=== PATIENT | male | born 2005 | race Caucasian/White ===

== ENCOUNTER 2024-10-28 04:37 | Observation (INO) | payer OTHER, SELFPAY ==
[2024-10-27 20:52] VITALS: BP 102/71
[2024-10-27 21:16] LABS: % Basophils 1.2 % (0-2); % Eosinophils 0.4 % (0-6); % Immature Granulocytes 0.3 % (0-0.5); % Lymphocytes 29.6 % (20.5-51.1); % Neutrophils 60.5 % (42.2-75.2); Absolute Basophils 0.1 10^3/uL (0-0.2); Absolute Lymphocytes 2.2 10^3/uL (1.2-3.4); Absolute Monocytes 0.6 10^3/uL (0.1-0.6); Absolute Neutrophils 4.5 10^3/uL (1.4-6.5); Hematocrit 42.2 % (39.0-52.0); Hemoglobin 14.7 g/dL (13.0-18.0); Mean Corp Hgb Conc. 34.8 g/dL (33.0-37.0); Mean Corpuscular Hgb 28.8 pg (27.0-31.0); Mean Corpuscular Volume 82.6 fL (80.0-94.0); Mean Platelet Volume 11.2 fL (7.4-10.4); Nucleated Red Blood Cells % 0 % (-); Platelet Count 265 10^3/uL (130-400); Red Blood Cell Count 5.11 10^6/uL (4.70-6.10); Red Cell Dist. Width 11.9 % (11.5-14.5); White Blood Cell Count 7.5 10^3/uL (4.8-10.8)
[2024-10-27 21:32] LABS: ALT (SGPT) 20 U/L (0-50); AST (SGOT) 32 U/L (17-59); Albumin 4.7 g/dl (3.5-5.0); Alkaline Phosphatase 101 U/L (38-126); Blood Urea Nitrogen 26 mg/dl (9-20); Calcium 9.7 mg/dl (8.4-10.2); Carbon Dioxide 19 mmol/L (22-30); Chloride 94 mmol/L (98-107); Glucose 96 mg/dl (70-99); Lipase 170 U/L (23-300); Potassium 4.8 mmol/L (3.5-5.1); Sodium 131 mmol/L (135-145); Total Bilirubin 2.6 mg/dl (0.2-1.3); Total Protein 6.9 g/dl (6.3-8.2); eGFR > 60.00
[2024-10-27 23:05] VITALS: BMI 15.0
[2024-10-27 23:08] VITALS: BP 105/65
[2024-10-27] MEDS: NSS 1000 IV (23:54)
[2024-10-28] VITALS (9 sets, daily range): BP systolic 94–105; BP diastolic 43–61
--- NOTE | 2024-10-28 00:06 | ED.GENMED ---
History of Present Illness
General
Chief Complaint: Abdominal Symptoms
Source: patient and family
Exam Limitations: none
Time Seen by Provider: 10/27/24 23:50
Nursing documentation reviewed up to this point in time: agreed with
History of Present Illness
History of Present Illness:
Pleasant 19-year-old male presents to the emergency department with multiple episodes of nausea with vomiting. Patient states that since the [employer] he has been in this state of not being able to keep anything down. He denies any drugs or
alcohol and states he was working during the [employer]. 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 He is supposed to take steroids on a daily basis but has been unable to keep them down. Patient denies fever or chills. He
denies chest pain or shortness of breath.
Vital signs are stable. Patient not hypoxic
Nursing note reviewed. I agree with nursing documentation up to this point in time.
Home Meds and allergies reviewed.
NUMBER AND COMPLEXITY OF PROBLEMS ADDRESSED AT THE ENCOUNTER
� Chronic conditions affecting care: APECED, addisonian disease, renal insufficiency, seizures
� Acute Exacerbation and/or Progression of Chronic Illness: Addisonian disease
� Differential Diagnosis includes: Addisonian crisis, dehydration, gastroenteritis
AMOUNT AND/OR COMPLEXITY OF DATA TO BE REVIEWED AND ANALYZED
I performed an independent evaluation of the following and my interpretation is:
EKG:
Pulse Ox: Not Hypoxic
Budget Examiner: Sinus Rhythm
CT:
X-rays:
Ultrasound:
Laboratory Studies: BUN of 26, creatinine of 1.0, T. bili of 2.6
Other:
Review of other/old records: Previous ER records
Clinical information was obtained by an independent historian:
Prescriptions/Medications Considered but not given:
Further testing considered but not performed:
RISK OF COMPLICATIONS AND/OR MORBIDITY OR MORTALITY OF PATIENT MANAGEMENT
Social determinants of health affecting care: Good Social Support
Discussion with other providers:
Escalation of care including admission/observation vs risk of discharge considered: After being observed in the emergency department, patient is improving but we will continue to observe. Discussed plan with hospitalist who
is in agreement.
CRITICAL CARE NOTE:
Total Time (exclusive of procedures):
Update:
Past History
Past History
ED Past Medical History: None
ED Past Surgical History: None
Social History
Tobacco: Non-smoker
Alcohol: None
Drug: None
Phy Exam
General Physical Exam
General Presentation: well appearing and moderate distress
General Skin: warm and dry
General Habitus: normal
General Mental: alert
General Hydration: appears well hydrated
ENT Exam
ENT Exam: EOMI, pharynx normal, neck supple and normocephalic
Eye Exam
Eye Exam: PERRL, cornea clear and conjunctiva normal
Cardiovascular Exam
Cardiovascular Exam: regular rate/rhythm, no edema, no murmur and normal peripheral pulses
Pulmonary Exam
Pulmonary Exam: lungs clear, no respiratory distress, no rales, no crackles, no rhonchi, no stridor, no wheezing and no cough
Gastrointestinal Exam
Gastrointestinal Exam: normal bowel sounds, non tender, soft, no organomegaly, no pulsatile mass, non distended and other (Negative McBurney's point tenderness. Negative Avitia sign)
Neurological Exam
Neurological Exam: alert, oriented x3, no motor deficits and speech normal
Musculoskeletal Exam
Musculoskeletal Exam: full ROM and no edema
Skin Exam
Skin Exam: normal color, warm/dry, no rash and no petechia
Psychiatric Exam
Psychiatric Exam: normal mood/affect
Course
Orders/Labs/Results
Orders:
Orders
10/27/24 21:02
Complete Blood Count/With Diff Urgent
Comprehensive Metabolic Panel Urgent
Lipase Urgent
TSH Urgent
Comment: ADD ON
10/27/24 23:51
0.9% Sodium Chloride 1000 ml [Nss] 1,000 ml IV BOLUS
10/28/24 00:02
Hydrocortisone Sod Succinate [Solu-Cortef] 100 mg IV NOW STA
10/28/24 00:04
Ondansetron Injectable [Zofran] 4 mg IV NOW STA
10/28/24 01:33
Add On- LAB Urgent
Tests Added?: TSH
Abnormal Lab Results
10/27/24
21:02
MPV 11.2 H fL
(7.4-10.4)
Sodium 131 L mmol/L
(135-145)
Chloride 94 L mmol/L
(98-107)
Carbon Dioxide 19 L mmol/L
(22-30)
BUN 26 H mg/dl
(9-20)
Total Bilirubin 2.6 H mg/dl
(0.2-1.3)
10/27/24 21:02
10/27/24 21:02
Vital Signs
Initial and Last Documented VS:
Initial Vital Signs
Temp Pulse Resp BP Pulse Ox
98.7 F 103 22 102/71 95
10/27/24 20:52 10/27/24 20:52 10/27/24 20:52 10/27/24 20:52 10/27/24 20:52
Last Documented Vital Signs
Temp Pulse Resp BP Pulse Ox
98.7 F 103 22 101/45 100
10/27/24 20:52 10/27/24 20:52 10/27/24 20:52 10/28/24 02:00 10/28/24 02:00
*Pulse Oximetry
Patient hypoxic: no
*Critical Care Note
Total Time (30-74mins, 75-104mins- exclusive of procedures): Not Applicable
ED Attending Note
-
Portions of this chart may have been created with voice recognition software.� Occasional wrong word or��sound alike� substitutions may have occurred due to the inherent limitations of voice recognition software.
Discharge Plan
Departure
Patient Disposition: Admit
Date of Disposition: 10/28/24
Time of Disposition: 02:15
Admit to: Telemetry
Presentation/result/management discussed w/ accepting MD/DO: Hospitalist
Patient with high blood pressure during this ER visit?: Yes
Condition: Good
Discharge Problem:
Addisonian crisis, Nausea & vomiting
Prescriptions:
No Action
Prednisone
4 mg PO DAILY
Patient Comments:
takes 4 mg at 0800 am
patient then stated that he took 10 mg of po prednisone this am 12/06/21
Prednisone
2 mg PO DAILY
Patient Comments:
takes 2 mg at 8 pm
Fludrocortisone Acetate
1 tab PO DAILY
promethazine 25 MG tablet
25 mg PO Q6HPRN PRN (Reason: nausea) Qty: 10 0RF
ondansetron 4 mg Tablet,Disintegrating
4 mg PO BIDPRN PRN (Reason: nausea/vomiting) Qty: 10 0RF
Referrals:
Ranjit Copeland DO [Family Provider] -
Interventions
Interventions:
*Risk Screen - Suicide Last Done: 10/27/24 20:52
*General Assessment Last Done: 10/27/24 20:52
*Neglect/Abuse Screening Last Done: 10/27/24 20:52
ED- Fall Risk Assessment Last Done: 10/27/24 23:05
*ED COVID-19 Vaccine History Last Done: 10/27/24 23:05
GB-Xswzhg-Adqzcknasp Assessment Last Done: 10/27/24 23:05
Discharge Date and Time
Print Language: PARAGUAYAN
[2024-10-28] MEDS: ZOFRAN 4 MG IV (00:13)
[2024-10-28] MEDS: SOLU-CORTEF 100 MG IV (00:13)
[2024-10-28 02:47] LABS: TSH 1.02 uIU/ml (0.47-4.68)
--- NOTE | 2024-10-28 04:18 | HPS.HSE ---
Family Physician
-
Family Physician: Ranjit Copeland
Chief Complaint
-
N/V
History of Present Illness
Patient is a 19y M with PMH significant for adrenal insufficiency / APECED who presents to ED complaining of intractable N/V x several days. Patient states that his symptoms started on Saturday and have persisted since that time. He denies any
alcohol use, drug use, unusual food exposures, etc prior to onset of his symptoms. No known sick contacts. Patient notes that he has been vomiting about 6 times daily. He has not been able to tolerate any PO intake - and this includes his
medications / hormone supplementations.
Patient denies abdominal pain, diarrhea, fevers / chills, etc.
Medical History
Past Medical History
Past Medical History: Reports Other
Additional Past Medical History:
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
Adrenal Insufficiency
Hyperthyroidism
Anxiety / Depression
Past Surgical History: Reports Other
Additional Past Surgical History:
Multiple endoscopies, etc in childhood.
Social History
Tobacco: Non-smoker
Alcohol: Occasional
Drug: Marijuana (Occasional THC - none recently.)
Family History
Family History: Not pertinent (No family members with APECED)
Allergies / Home Medications
Allergies reflects when Allergies were last updated in [employer].
Home Medications with original date entered in [employer]
Allergy/Medication List:
Allergies
Allergy/AdvReac Type Severity Reaction Status Date / Time
albuterol Allergy Unknown Verified 10/15/22 12:45
amoxicillin trihydrate Allergy Unknown Verified 10/15/22 12:45
[From Augmentin]
midazolam Allergy Unknown Verified 10/15/22 12:45
potassium clavula Allergy Unknown Verified 10/15/22 12:45
*RETIRED-06/03/12
[From Augmentin]
vancomycin Allergy Unknown Verified 10/15/22 12:45
cefil Allergy Unknown Uncoded 10/15/22 12:45
Home Medications
fludrocortisone 0.1 mg tablet 0.2 mg PO DAILY 10/28/24
fluoxetine 10 mg tablet 10 mg PO DAILY 10/28/24
hydrocortisone 10 mg tablet 10 mg PO BID 10/28/24
methimazole 5 mg tablet 5 mg PO DAILY 10/28/24
prednisone 1 mg tablet 1 mg PO HS 10/28/24
Review of Systems
-
History Source: Patient
A 12 point ROS was completed and negative except as noted: Yes
Constitutional: Reports Fatigue; Denies Fever or Chills
EENT: Denies Sore Throat
Respiratory: Denies Cough or Trouble Breathing
Cardiac: Denies Chest Pain or Palpitations
Abdomen/GI: Reports Nausea, Vomiting and Anorexia; Denies Abdominal Pain, Diarrhea, Constipated, Bloody Stools or Black Stools
: Denies Dysuria or Frequency
Musculoskeletal: Denies Joint Pain or Edema
Neurological: Denies Dizzy or Headache
Physical Exam
Vital Signs
Vital Signs
Temp Pulse Resp BP Pulse Ox
98.7 F 103 22 94/45 100
10/27/24 20:52 10/27/24 20:52 10/27/24 20:52 10/28/24 03:00 10/28/24 03:00
Physical Exam
General: Other (Thin / cachectic 19y M in no acute distress.)
HEENT: Moist mucous membranes and PERRLA
Respiratory: Clear; No Wheezes, Rales or Rhonchi
Cardiac: S1/S2 and Regular Rhythm; No Murmur
GI: Soft, Non Tender, Non Distended and Normal Bowel Sounds
Musculoskeletal: No Clubbing, No Cyanosis and No Edema
Neuro: AO x 3
Laboratory Results
-
10/27/24 21:02
10/27/24 21:02
Laboratory Results
Total Bilirubin 2.6 mg/dl (0.2-1.3) H 10/27/24 21:02
AST 32 U/L (17-59) 10/27/24 21:02
ALT 20 U/L (0-50) 10/27/24 21:02
Alkaline Phosphatase 101 U/L (38-126) 10/27/24 21:02
Lipase 170 U/L (23-300) 10/27/24 21:02
Impression/Plan
-
A/P: Patient is a 19y M with PMH significant for APECED / adrenal insufficiency who presents to ED complaining of intractable N/V x several days.
APECED
Adrenal Insufficiency
- Observe overnight for further evaluation and treatment.
- Received IVFs and stress-dose SoluMedrol IV in the ED.
- Patient notes clinical improvement already.
- Trial of PO intake and - if tolerates - resume his usual med regimen in the AM.
- Continue IVF support overnight.
- Consider additional IV steroid dosing if patient unable to tolerate PO with out recurrent N/V.
- Follows with Dr. Amado as an outpatient.
Intractable N/V
- Initial etiology unclear - ? gastroenteritis, etc.
- Likely perpetuated by adrenal insufficiency / inability to tolerate usual meds.
- Continue supportive care, IVFs, antiemetics, etc.
- Follow for continued clinical improvement.
Hyperthyroidism
- Stable. TSH normal. Continue current methimazole dose.
DVT Prophylaxis: SCDs
Code Status: Full
[2024-10-28] MEDS: NSS 1000 IV (05:18)
[2024-10-28 05:53] LABS: Blood Urea Nitrogen 25 mg/dl (9-20); Calcium 8.1 mg/dl (8.4-10.2); Carbon Dioxide 22 mmol/L (22-30); Chloride 100 mmol/L (98-107); Estimated Creatinine Clearance 101 ml/min; Glucose 180 mg/dl (70-99); Sodium 131 mmol/L (135-145); eGFR > 60.00
--- NOTE | 2024-10-28 07:17 | W.PN.HOSP.TC ---
Addendum entered and electronically signed by Anjelica Pennington MD 10/28/24 17:41:
I saw and evaluated the patient independently. I reviewed the resident�s note and agree with findings and plan as documented by Dr. Chavarria.
GENERAL: well developed, well nourished, male in no apparent distress
HEENT: NC/AT
HEART: regular rate and rhythm, +S1, +S2
LUNGS : clear to auscultation bilaterally
ABDOM: soft, nontender, nondistended, + bowel sounds
EXT: no cyanosis, clubbing, or edema
NEUROLOGIC: nonfocal
N/V--started night of [place]--no one else sick--could not keep down meds so had Adrenal Insufficiency--s/p IVF, IV steroids--much improved--tolerated diet--resume home meds--OK for d/c--f/u with endo
APECED-- Monitoring - Stable
Hyperthyroidism--Monitoring - Stable--TSH WNL--cont methimazole
DVT proph-- SCDs
FULL CODE STATUS
Original Note:
Today's Communication/Plan
-
Maintain IV fluid support until medically stable. Patient already notes clinical improvement. Continue current medications including antiemetics. Will move forward with discharge planning.
Assessment / Plan
Assessment / Plan
HPI: The patient is a 19-year-old male who presented to the emergency department with multiple episodes of nausea with vomiting. The patient stated that since the [employer] he had been in the state of not being able to keep anything down. He
stated that he was working on the day of the [employer]. 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 The patient occasionally used alcohol
and marijuana, but not recently. Unfortunately, he had been unable to take his steroids as he had been unable to keep anything down. The patient notes that he has been vomiting approximately 6 times a day. Patient denied any fever or chills, and
had no chest pain or shortness of breath. The patient received IV fluid support, hydrocortisone, Zofran in the emergency department and was admitted to telemetry. The patient was admitted to [facility] for addisonian crisis.
Assessment/Plan:
-Adrenal Insufficiency: Unresolved
Continue IV fluid support and determine if further IV steroid dosing is needed if unable to tolerate oral dosing
Patient already notes clinical improvement since receiving Solu-Medrol in the emergency department
Recommend follow-up with outpatient community health director after discharge
-Intractable Nausea/Vomiting: Improving
Likely perpetuated by adrenal insufficiency and exacerbated by inability to tolerate oral meds
Continue IV fluid support
Zofran as needed
-APECED: Monitoring - Stable
- Hyperthyroidism: Monitoring - Stable
TSH levels normal
Continue current methimazole
DVT prophylaxis: SCDs
FULL CODE STATUS
Anticipated Discharge: Within 24 hours
Subjective/Interval History
-
Met with patient at the bedside. Overall, he is doing well and offers no complaints at the present time. He feels that he is returned to his baseline and would like to be discharged home.
Objective Data
-
Labs:
Laboratory Results
10/27/24 10/28/24
21:02 05:16
WBC 7.5
Hgb 14.7
Hct 42.2
Plt Count 265
Sodium 131 L 131 L
Potassium 4.8 4.0
Chloride 94 L 100
Carbon Dioxide 19 L 22
BUN 26 H 25 H
Creatinine 1.0 0.8
Glucose 96 180 H
Calcium 9.7 8.1 L D
Total Bilirubin 2.6 H
AST 32
ALT 20
Alkaline Phosphatase 101
Vital Signs:
Vital Signs
Temp Pulse Resp BP Pulse Ox
98.7 F 103 22 99/49 100
10/27/24 20:52 10/27/24 20:52 10/27/24 20:52 10/28/24 06:00 10/28/24 06:00
Review of Systems
-
All other systems: Reviewed and negative
Physical Exam
-
General: Well Developed, Well Nourished, No Apparent Distress and Comfortable
HEENT: Normocephalic, Atraumatic and Moist Mucous Membranes
Respiratory: Clear to Auscultation
Cardiac: Regular Rhythm and S1/S2
Breast: Deferred by me
GI: Soft, Nontender, Nondistended and Normal Bowel Sounds
Rectal: Deferred by Provider
Genito-urinary: Deferred by me
Musculoskeletal: No Clubbing, No Cyanosis and No Edema
Skin: Warm
Neuro: Awake, Alert and Oriented
Psych: Calm
[2024-10-28] MEDS: PROZAC 10 MG PO (08:22)
[2024-10-28] MEDS: TAPAZOLE 5 MG PO (08:22)
[2024-10-28] MEDS: FLORINEF 0.2 MG PO (08:22)
[2024-10-28] MEDS: CORTEF 10 MG PO (08:22)
--- NOTE | 2024-10-28 09:15 | PTCARENOTE ---
pt very anxious to be discharged. initially refusing monitor leads and wanting to leave. notified MD and updated pt that she will be around to see him by 9am. he was agreeable to cares and meds. pt states no nausea vomiting and able to eat
cereal without problems
[2024-10-28 09:20] LABS: Hematocrit 28.1 % (39.0-52.0); Hemoglobin 10.2 g/dL (13.0-18.0); Mean Corp Hgb Conc. 36.3 g/dL (33.0-37.0); Mean Corpuscular Hgb 29.5 pg (27.0-31.0); Mean Corpuscular Volume 81.2 fL (80.0-94.0); Mean Platelet Volume 11.6 fL (7.4-10.4); Platelet Count 159 10^3/uL (130-400); Red Blood Cell Count 3.46 10^6/uL (4.70-6.10); Red Cell Dist. Width 11.7 % (11.5-14.5); White Blood Cell Count 3.4 10^3/uL (4.8-10.8)
[2024-10-28 09:29] LABS: ALT (SGPT) 14 U/L (0-50); AST (SGOT) 22 U/L (17-59); Albumin 3.2 g/dl (3.5-5.0); Alkaline Phosphatase 64 U/L (38-126); Blood Urea Nitrogen 22 mg/dl (9-20); Calcium 8.1 mg/dl (8.4-10.2); Carbon Dioxide 21 mmol/L (22-30); Chloride 101 mmol/L (98-107); Estimated Creatinine Clearance 115 ml/min; Glucose 209 mg/dl (70-99); Magnesium 2.2 mg/dl (1.6-2.3); Potassium 4.2 mmol/L (3.5-5.1); Sodium 131 mmol/L (135-145); Total Bilirubin 1.6 mg/dl (0.2-1.3); Total Protein 5.1 g/dl (6.3-8.2); eGFR > 60.00
--- NOTE | 2024-10-28 09:55 | CM ---
Patient seen at bedside with mother. Patient stated that he would go home and has no needs. Patient lives with parents. Patient stated it is a 2 story home. Patient PCP is Dr. Copeland and he uses the [facility] in [place]. Patient mother to transport.
Patient reviewed OBS form with CM and mother, completed form given to community marketing coordinator for scanning. Patient for discharge after tolerated diet per physicians. CM will continue to follow for discharge planning needs.
Plan; home with family
--- NOTE | 2024-10-28 18:16 | W.DCSUMMARY ---
Addendum entered and electronically signed by Anjelica Pennington MD 10/29/24 07:04:
Read, reviewed, and agree. See same day progress note for additional details. Time spent coordinating care, DC planning, review of DC plan of care with resident, transition of care, review of records in EMR, med rec, consults, notes, d/w
consultants, nursing, family, and CM = 20 minutes
Original Note:
Discharge Summary
Discharge Data
Date of Admission: 10/28/24
Date of Discharge: 10/28/24
-
Pending Results: No
Hospital Course
The patient is a 19-year-old male who presented to the emergency department with multiple episodes of nausea with vomiting. The patient stated that since the [employer] he had been in the state of not being able to keep anything down. He stated
that he was working on the day of the [employer]. 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 The patient occasionally used alcohol and
marijuana, but not recently. Unfortunately, he had been unable to take his steroids as he had been unable to keep anything down. The patient notes that he has been vomiting approximately 6 times a day. Patient denied any fever or chills, and had
no chest pain or shortness of breath. The patient received IV fluid support, hydrocortisone, Zofran in the emergency department and was admitted to telemetry. The patient was admitted to [facility] for addisonian crisis.
In the emergency department the patient's status quickly improved with IV fluid support and Solu-Medrol stress dosing. The patient's nausea and vomiting resolved quickly after treatment began. The patient's TSH levels were normal so his
methimazole was continued. After sufficient observation the patient appears to be back at his baseline and is medically stable. He consumed his meal and was able to tolerate it without any nausea or vomiting. He asked to be discharged and is
appropriate for discharge.
The patient has reached maximal benefit from this hospital stay and is appropriate for discharge at the present time. The patient should follow-up with his outpatient editing clerk within 1 week after discharge. The patient should also follow-up
with his primary care provider within 1 week after discharge.
Discharge Plan
-
Patient Disposition: Home (Routine Discharge)
Discharge Diagnosis/Procedures: Addisonian Crisis
Condition: Good
Diet: No restrictions
Activity: No restrictions
Driving Restrictions: As prior to admission
Referrals:
Ranjit Copeland DO [Family Provider] - in less than 1 week
Prescriptions:
Continued
fluoxetine 10 mg Tablet
10 mg PO DAILY
prednisone 1 mg Tablet
1 mg PO HS
methimazole 5 mg Tablet
5 mg PO DAILY
hydrocortisone 10 mg Tablet
10 mg PO BID
fludrocortisone 0.1 mg Tablet
0.2 mg PO DAILY
Discharge Orders:
Discharge Patient (As Directed); Ordered 10/28/24
Ordered By: Cari Chavarria
Discharge Date and Time
Discharge Date/Time: 10/28/24 10:32
Print Language: SWAZI
== END 2024-10-28 10:32 | disposition home or self-care (01) ==
LOC: ED 04:37
PROVIDERS: Emergency Medicine; ADMITTING PHYSICIAN Hospitalist; ATTENDING PHYSICIAN Internal Medicine; EMERGENCY PHYSICIAN Student in an Organized Health Care Education/Training Program; FAMILY PHYSICIAN Family Medicine
DX: E27.2 Addisonian crisis (principal); R11.2 Nausea with vomiting, unspecified; E27.1 Primary adrenocortical insufficiency; E05.90 Thyrotoxicosis, unspecified without thyrotoxic crisis or storm
CPT/HCPCS: 80048; 80053; 83690; 83735; 84443; 85025; 85027; G0378

== ENCOUNTER 2024-11-23 01:00 | Inpatient (IN) | payer OTHER, SELFPAY ==
[2024-11-22 21:13] VITALS: BP 126/78
--- NOTE | 2024-11-22 21:51 | ED.GENMED ---
History of Present Illness
General
Chief Complaint: Abdominal Symptoms
Source: patient and records
Exam Limitations: none
Time Seen by Provider: 11/22/24 21:39
Nursing documentation reviewed up to this point in time: agreed with
History of Present Illness
History of Present Illness:
19-year-old male with past medical history of APECED, Rex's disease, hypothyroidism, anxiety who presents to the emergency room for 'adrenal crisis.' Patient says 'I am here because I am an adrenal crisis.' When asked why he believes he is in
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 He went home and vomited again and woke up this
morning continued to have nausea and vomiting. He says he feels severe fatigue and mild dizziness. He denies any abdominal pain. Denies any chest pain. Denies fever or chills. He denies any diarrhea. He denies any other complaints. He says
that he is on regular hydrocortisone 10 mg twice daily; he says that he did take his hydrocortisone today but was still nauseated and weak and came to the ER.
Past History
Past History
ED Past Medical History: None
ED Past Surgical History: None
Social History
Tobacco: Non-smoker
Alcohol: None
Drug: None
Review of Systems
Review of Systems
All Other Systems: ROS reviewed and negative except as documented in HPI and ROS
Constitutional: Reports fatigue; Denies fever or chills
Respiratory: Denies cough or trouble breathing
Cardiac: Denies chest pain
ABD/GI: Reports nausea and vomiting; Denies abdominal pain or diarrhea
: Denies flank pain
Musculoskeletal: Denies neck pain or back pain
Neurological: Denies dizzy or headache
Phy Exam
Physical Exam
Physical Exam:
General: Awake, alert, oriented x3; no acute distress
Head: Normocephalic, atraumatic
Eyes: Conjunctiva normal, sclera anicteric
Throat: Airway intact, slightly dry mucous membranes
Neck: Trachea midline
Lungs: Clear to auscultation bilaterally, no wheezing, rales, rhonchi
Heart: Regular rate and rhythm, no murmurs, gallops, or rubs
Abd: Soft, non distended, nontender
Neuro: No gross deficits
Extremities: No edema in extremities, equal pulses in all extremities
Scores
Heart Failure Risk
Heart Failure Risk Score: Not Applicable
Heart Score for Chest Pain Patients
STEMI patient?: Not applicable
Withdrawal Assessment of Alcohol
Withdrawal Assessment Completed?: Not applicable
Course
Orders/Labs/Results
Orders:
Orders
11/22/24 21:41
0.9% Sodium Chloride 1000 ml [Nss] 1,000 ml IV BOLUS
Hydrocortisone Sod Succinate [Solu-Cortef] 100 mg IV NOW STA
Ondansetron Injectable [Zofran] 4 mg IV NOW STA
11/22/24 21:42
Electrocardiogram (*1) Urgent
Reason for Study: QTc Monitoring
EKG- Treatment ONCE
11/22/24 22:07
Complete Blood Count/With Diff Urgent
Comprehensive Metabolic Panel Urgent
Cortisol, Random Urgent
Lipase Urgent
11/22/24 22:08
COVID-19 Antigen Urgent
Source: Nasal Swab
Influenza A+B Rapid Molecular Urgent
TOPHER Source: Nasal Swab
Specimen Description:
11/22/24 23:45
Dextrose 5%/0.9%Sodchl 1000 ml [D5/0.9% Sodium Chloride] 1,000 ml IV 75 mls/hr
11/23/24 00:21
Dextrose 50%-Water [Dextrose 50% Syringe] 25 grams .ROUTE .[facility]
11/23/24 00:22
Dextrose 50%-Water [Dextrose 50% Syringe] 25 grams IV NOW STA
Abnormal Lab Results
11/22/24 11/23/24
22:07 00:17
MPV 11.4 H fL
(7.4-10.4)
Absolute Monos (auto) 0.8 H 10^3/uL
(0.1-0.6)
Neutrophils % 26.5 L %
(42.2-75.2)
Monocytes % 12.6 H %
(1.7-9.3)
Eosinophils % 9.9 H %
(0-6)
Sodium 133 L mmol/L
(135-145)
Potassium 5.4 H mmol/L
(3.5-5.1)
BUN 30 H mg/dl
(9-20)
Calcium 10.7 H mg/dl
(8.4-10.2)
Total Bilirubin 2.4 H mg/dl
(0.2-1.3)
POC Glucose 69 L mg/dl
(70-99)
11/22/24 22:07
11/22/24 22:07
Vital Signs
Initial and Last Documented VS:
Initial Vital Signs
Temp Pulse Resp BP Pulse Ox
36.4 C 94 18 126/78 98
11/22/24 21:13 11/22/24 21:13 11/22/24 21:13 11/22/24 21:13 11/22/24 21:13
Last Documented Vital Signs
Temp Pulse Resp BP Pulse Ox
36.4 C 64 16 104/61 96
11/22/24 21:13 11/22/24 23:30 11/22/24 23:30 11/22/24 23:00 11/22/24 23:30
MDM/Problems Addressed
Differential Diagnosis Includes:
Adrenal insufficiency, gastritis/gastroenteritis, pancreatitis, cholelithiasis
MDM/Problems Addressed:
19-year-old male with history as noted presents to the emergency room for nausea and vomiting for the past 24 hours associate with increased fatigue and dizziness. He says he has had similar symptoms with adrenal insufficiency in the past although
he reports he was able to take his steroids today. Vitals are within normal limits�notably blood pressure normal at 126/78. Physical exam as above. Will place an IV check labs including a CBC and a CMP, cortisol level. Check lipase. Swab for
COVID and flu. Treat with Zofran, hydrocortisone, IV fluids. Reassess after the above.
Labs reviewed CBC unremarkable, CMP shows mild hyperkalemia 5.4; glucose acceptable but given that he has not been able to take by mouth can start D5 normal saline infusion. COVID and flu are negative. EKG shows acceptable QTc. Clinical
reassessment nausea improved but still feeling very weak and dizzy. Admit for continued treatment with concern for adrenal insufficiency. Discussed with hospitalist.
Reassessed patient he is feeling weak and clammy, dizzy. Normotensive but heart rate dropped into the 40s. Accu-Chek shows blood sugar in the 60s. Treated with D50. Heart rate improved. Continue to monitor. Admission is pending.
Chronic conditions affecting care:
Adrenal insufficiency
*Pulse Oximetry
Patient hypoxic: no
*Critical Care Note
Total Time (30-74mins, 75-104mins- exclusive of procedures): Not Applicable
Data Reviewed
Review of Other/Old Records Reveals: Labs, Records and Discharge Summary
Source: patient and records
Patient Management
Discussion with other providers: Hospitalist (Discussed with hospitalist)
Escalation/DeEscalation of care consider admission/obs:
Admission indicated
ED Attending Note
-
Portions of this chart may have been created with voice recognition software.� Occasional wrong word or��sound alike� substitutions may have occurred due to the inherent limitations of voice recognition software.
Discharge Plan
Departure
Patient Disposition: Admit
Date of Disposition: 11/22/24
Time of Disposition: 23:04
Admit to doctor: Garry
Presentation/result/management discussed w/ accepting MD/DO: Hospitalist
Discharge Problem:
Nausea & vomiting, Addisonian crisis
Prescriptions:
No Action
fluoxetine 10 mg Tablet
10 mg PO DAILY
prednisone 1 mg Tablet
1 mg PO HS
methimazole 5 mg Tablet
5 mg PO DAILY
hydrocortisone 10 mg Tablet
10 mg PO BID
fludrocortisone 0.1 mg Tablet
0.2 mg PO DAILY
Referrals:
Ranjit Copeland DO [Family Provider] -
Interventions
Interventions:
*Risk Screen - Suicide Last Done: 11/22/24 21:13
*General Assessment Last Done: 11/22/24 21:13
*Neglect/Abuse Screening Last Done: 11/22/24 21:13
*ED- Fall Risk Assessment Last Done: 11/22/24 21:13
*ED COVID-19 Vaccine History Last Done: 11/22/24 21:13
QQ-Olidze-Mpkgndmyiq Assessment Last Done: 11/22/24 22:54
Discharge Date and Time
Print Language: MALAY
[2024-11-22 21:53] VITALS: BMI 16.7
[2024-11-22 22:00] VITALS: BP 98/59
[2024-11-22] MEDS: ZOFRAN 4 MG IV (22:01)
[2024-11-22] MEDS: NSS 1000 IV (22:04)
[2024-11-22] MEDS: SOLU-CORTEF 100 MG IV (22:13)
[2024-11-22 22:24] LABS: % Eosinophils 9.9 % (0-6); % Immature Granulocytes 0.2 % (0-0.5); % Lymphocytes 48.8 % (20.5-51.1); % Monocytes 12.6 % (1.7-9.3); % Neutrophils 26.5 % (42.2-75.2); Absolute Basophils 0.1 10^3/uL (0-0.2); Absolute Eosinophils 0.7 10^3/uL (0-0.7); Absolute Lymphocytes 3.2 10^3/uL (1.2-3.4); Absolute Monocytes 0.8 10^3/uL (0.1-0.6); Absolute Neutrophils 1.8 10^3/uL (1.4-6.5); Hematocrit 47.2 % (39.0-52.0); Hemoglobin 16.2 g/dL (13.0-18.0); Mean Corp Hgb Conc. 34.3 g/dL (33.0-37.0); Mean Corpuscular Hgb 28.6 pg (27.0-31.0); Mean Corpuscular Volume 83.4 fL (80.0-94.0); Mean Platelet Volume 11.4 fL (7.4-10.4); Nucleated Red Blood Cells % 0 % (-); Platelet Count 218 10^3/uL (130-400); Red Blood Cell Count 5.66 10^6/uL (4.70-6.10); Red Cell Dist. Width 12.7 % (11.5-14.5); White Blood Cell Count 6.6 10^3/uL (4.8-10.8)
[2024-11-22 22:29] LABS: COVID-19 Antigen Negative (Negative)
[2024-11-22 22:35] LABS: ALT (SGPT) 25 U/L (0-50); AST (SGOT) 35 U/L (17-59); Alkaline Phosphatase 109 U/L (38-126); Blood Urea Nitrogen 30 mg/dl (9-20); Calcium 10.7 mg/dl (8.4-10.2); Carbon Dioxide 24 mmol/L (22-30); Chloride 98 mmol/L (98-107); Estimated Creatinine Clearance 87 ml/min; Glucose 73 mg/dl (70-99); Lipase 100 U/L (23-300); Potassium 5.4 mmol/L (3.5-5.1); Sodium 133 mmol/L (135-145); Total Bilirubin 2.4 mg/dl (0.2-1.3); Total Protein 7.6 g/dl (6.3-8.2); eGFR > 60.00
[2024-11-22 22:54] VITALS: BP 98/59
[2024-11-22 23:00] VITALS: BP 104/61
[2024-11-22 23:07] LABS: Cortisol, Random < 0.2 ug/dl
[2024-11-23] VITALS (21 sets, daily range): BP systolic 84–124; BP diastolic 48–86; BMI 14.7
[2024-11-23] MEDS: D5/0.9% SODIUM CHLORIDE 1000 IV ×4 (00:18→09:40)
[2024-11-23 00:19] LABS: Glucose - Point of Care 69 mg/dl (70-99)
[2024-11-23] MEDS: DEXTROSE 50% SYRINGE 25 GRAMS IV (00:22)
--- NOTE | 2024-11-23 00:46 | HPS.HSE ---
Family Physician
-
Family Physician: Ranjit Copeland
Chief Complaint
-
N/V, Weakness
History of Present Illness
Patient is a 19y M with PMH significant for adrenal insufficiency and APECED who presents to ED complaining of N/V and weakness. Patient states that his symptoms started suddenly last PM. He notes that he has been taking his medications as
usual despite his symptoms. However, he continued to have N/V x multiple episodes today. He has become increasingly weak / fatigued and presented to the hospital this evening for further evaluation.
In the ED, patient is noted to be tachycardic, hypotensive and hypoglycemic. He received an amp of D50 and is on D5NS infusion.
Patient received initial dose of hydrocortisone 100mg IV at 9:20 PM.
Medical History
Past Medical History
Past Medical History: Reports Other
Additional Past Medical History:
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
Adrenal Insufficiency
Hyperthyroidism
Anxiety / Depression
Past Surgical History: Reports Other
Additional Past Surgical History:
Multiple endoscopies, etc in childhood.
Social History
Tobacco: Non-smoker
Alcohol: Occasional
Drug: Marijuana (Occasional THC - none recently.)
Family History
Family History: Not pertinent (No family members with APECED)
Allergies / Home Medications
Allergies reflects when Allergies were last updated in [facility].
Home Medications with original date entered in [facility]
Allergy/Medication List:
Allergies
Allergy/AdvReac Type Severity Reaction Status Date / Time
albuterol Allergy Hives Verified 11/22/24 21:18
amoxicillin trihydrate Allergy Rash Verified 11/22/24 21:18
[From Augmentin]
cefprozil Allergy Rash Verified 11/22/24 21:18
midazolam Allergy agitation Verified 11/22/24 21:18
potassium clavula Allergy Rash Verified 11/22/24 21:18
*RETIRED-06/03/12
[From Augmentin]
vancomycin Allergy red kalee Verified 11/22/24 21:18
syndrome
Home Medications
fludrocortisone 0.1 mg tablet 0.2 mg PO DAILY Adrenal Insufficiency 10/28/24
fluoxetine 10 mg tablet 10 mg PO DAILY Mental Health 10/28/24
hydrocortisone 10 mg tablet 10 mg PO BID Adrenal Insufficiency 10/28/24
methimazole 5 mg tablet 5 mg PO DAILY Thyroid 10/28/24
prednisone 1 mg tablet 1 mg PO HS Adrenal Insufficiency 10/28/24
Review of Systems
-
History Source: Patient
A 12 point ROS was completed and negative except as noted: Yes
Constitutional: Reports Fatigue; Denies Fever or Chills
EENT: Denies Sore Throat
Respiratory: Denies Cough or Trouble Breathing
Cardiac: Denies Chest Pain or Palpitations
Abdomen/GI: Reports Nausea, Vomiting and Anorexia; Denies Abdominal Pain, Diarrhea, Constipated, Bloody Stools or Black Stools
: Denies Dysuria or Frequency
Musculoskeletal: Denies Joint Pain or Edema
Neurological: Denies Dizzy or Headache
Physical Exam
Vital Signs
Vital Signs
Temp Pulse Resp BP Pulse Ox
97.6 F 64 16 104/61 96
11/22/24 21:13 11/22/24 23:30 11/22/24 23:30 11/22/24 23:00 11/22/24 23:30
Physical Exam
General: Other (Pale, ill-appearing 19y M. Mildly diaphoretic.)
HEENT: Other (Dry MM. Neck supple.)
Respiratory: Clear; No Wheezes, Rales or Rhonchi
Cardiac: S1/S2 and Bradycardia; No Murmur
GI: Soft, Non Tender, Non Distended and Normal Bowel Sounds
Musculoskeletal: No Clubbing, No Cyanosis and No Edema
Neuro: AO x 3
Laboratory Results
-
11/22/24 22:07
11/22/24 22:07
Laboratory Results
Total Bilirubin 2.4 mg/dl (0.2-1.3) H 11/22/24 22:07
AST 35 U/L (17-59) 11/22/24 22:07
ALT 25 U/L (0-50) 11/22/24 22:07
Alkaline Phosphatase 109 U/L (38-126) 11/22/24 22:07
Lipase 100 U/L (23-300) 11/22/24 22:07
Impression/Plan
-
A/P: Patient is a 19y M with PMH significant for APECED / adrenal insufficiency who presents to ED complaining of intractable N/V and generalized weakness.
Adrenal Crisis
Rex's Disease
APECED
- Admit to ICU for further evaluation and treatment.
- Continue IV hydrocortisone 50mg q6 and follow for clinical improvement.
- Aggressive IVFs / volume replacement - including supplemental dextrose given hypoglycemia.
- Supportive care including antiemetics, etc.
- Follow for clinical improvement.
- Resume PO fludrocortisone, prednisone, etc once tolerating POs.
- Taper IV hydrocortisone to usual PO dosing once clinically improving.
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
Hyperthyroidism
- Hold methimazole for now given bradycardia, hypotension, etc.
- Check TFTs.
DVT Prophylaxis: SCDs
Code Status: Full
[2024-11-23 00:48] LABS: Glucose - Point of Care 213 mg/dl (70-99)
[2024-11-23] MEDS: SOLU-CORTEF 50 MG IV ×3 (03:11→11:26)
[2024-11-23 03:13] LABS: Glucose - Point of Care 172 mg/dl (70-99)
--- NOTE | 2024-11-23 03:22 | PTCARENOTE ---
Pt admit to ICU, pt belongings w/ pt. Oriented to room/hospital. SR/SB on telemetry. Pt c/o slight nausea that resolved without intervention. D5/0.9NSS infusing as ordered. Discussed plan of care w/ patient. Pt denies any pain, dizziness, or
lightheadedness. Urinating in urinal. Call canchola within reach.
[2024-11-23 03:27] LABS: INR 1.27; PT 16.2 Sec (11.4-14.6)
[2024-11-23 03:40] LABS: Blood Urea Nitrogen 28 mg/dl (9-20); Calcium 9.4 mg/dl (8.4-10.2); Carbon Dioxide 22 mmol/L (22-30); Chloride 101 mmol/L (98-107); Estimated Creatinine Clearance 109 ml/min; Glucose 182 mg/dl (70-99); Magnesium 2.1 mg/dl (1.6-2.3); Phosphorus 4.2 mg/dl (2.5-4.5); Sodium 133 mmol/L (135-145); eGFR > 60.00
[2024-11-23 03:42] LABS: Hemoglobin 13.7 g/dL (13.0-18.0); Mean Corp Hgb Conc. 35.1 g/dL (33.0-37.0); Mean Corpuscular Hgb 29.2 pg (27.0-31.0); Mean Corpuscular Volume 83.2 fL (80.0-94.0); Mean Platelet Volume 10.8 fL (7.4-10.4); Platelet Count 169 10^3/uL (130-400); Red Blood Cell Count 4.69 10^6/uL (4.70-6.10); Red Cell Dist. Width 12.5 % (11.5-14.5); White Blood Cell Count 5.7 10^3/uL (4.8-10.8)
[2024-11-23 04:09] LABS: Glucose - Point of Care 181 mg/dl (70-99)
[2024-11-23 04:11] LABS: TSH Reflex To Free T4 1.92 uIU/ml (0.47-4.68)
--- NOTE | 2024-11-23 06:38 | PTCARENOTE ---
Pt HR briefly dipped into 30s while completing AM EKG. Pt misunderstood instructions and held his breath during. HR recovered once breathing normally again. No further change in assessment.
[2024-11-23 08:10] LABS: Glucose - Point of Care 204 mg/dl (70-99)
--- NOTE | 2024-11-23 08:14 | CON.INTV ---
Consultation
Consultation Request
Date/Time Consultation Requested: 11/23/2024157
Date/Time Consultation Performed: 11/23/2024809
Requesting Provider: Dr. Castañeda
Performing Provider: Dr. Casey
Reason for Consultation: Adrenal crisis/bradycardia
Medical History
-
Chief Complaint: Vomiting
History of Present Illness:
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 He reports he has been taking his medications as usual. Patient
told triage that he was in an adrenal crisis. In the ER he was afebrile to 97.6 �F, pulse rate 94, breathing at 18 breaths/min, BP 126/78 and saturating 98% on room air. Initial labs showed sodium 133, potassium 5.4, calcium 10.7, random cortisol
level <0.2 and TSH 1.92. He also was COVID-19 antigen negative. CXR showed no acute cardiopulmonary process. In the ER he was given hydrocortisone, 1 L NS 0.9%, 4 mg Zofran, 1 amp of D50 and also started on D5-NS drip due to POCT BG of 69 shortly
after midnight on admission. Given that patient had bradycardia with heart rate dropping into the 30s, patient was admitted to the ICU for further care. Schedule Analyst services consulted for additional management/recommendations.
I spoke with the father, Boni, today at bedside during rounds. The pt had an episode like this in past during covid-19 (in 2019) when he did not take his medications when he was visiting his mother (his parents are ) and then ended up in
[place]. He works at [employer] at night, so this interrupts with his medication compliance. No preceding infection, cough, fevers or chills. HR this AM 75, BP 104/60 and SpO2 99% on room air. He feels much better currently. He follows with
endocrinology with Dr. Amado, although he has not seen him in several years.
PMHx: Rex's disease on home hydrocortisone + Florinef, APCED, hyperthyroidism, anxiety/depression
PSHx: Multiple endoscopies
Past Medical History
Past Medical History: Other (Above as per HPI)
Past Surgical History: Other (Above as per HPI)
Social History
Tobacco: Non-smoker
Alcohol: Occasional
Drug: Marijuana (None recently)
Personal: Single
Family History
Family History: Reviewed & Not Pertinent
Allergies / Home Medications
Allergies
Allergy/AdvReac Type Severity Reaction Status Date / Time
albuterol Allergy Hives Verified 11/22/24 21:18
amoxicillin trihydrate Allergy Rash Verified 11/22/24 21:18
[From Augmentin]
cefprozil Allergy Rash Verified 11/22/24 21:18
midazolam Allergy agitation Verified 11/22/24 21:18
potassium clavula Allergy Rash Verified 11/22/24 21:18
*RETIRED-06/03/12
[From Augmentin]
vancomycin Allergy red kalee Verified 11/22/24 21:18
syndrome
Home Medications
�Medication �Instructions �Recorded �Confirmed �Last Taken �Type
fludrocortisone 0.1 mg tablet 0.2 mg PO DAILY Adrenal 10/28/24 11/23/24 Unknown History
Insufficiency
fluoxetine 10 mg tablet 10 mg PO DAILY Mental Health 10/28/24 11/23/24 Unknown History
hydrocortisone 10 mg tablet 10 mg PO BID Adrenal Insufficiency 10/28/24 11/23/24 Unknown History
methimazole 5 mg tablet 5 mg PO DAILY Thyroid 10/28/24 11/23/24 Unknown History
prednisone 1 mg tablet 1 mg PO HS Adrenal Insufficiency 10/28/24 11/23/24 Unknown History
Review of Systems
-
History Source: Patient
All other systems: Negative unless noted
Vitals / Labs / Diagnostic Testing
Vital Signs
Temp Pulse Resp BP Pulse Ox
98.2 F 73 13 117/58 98
11/23/24 08:02 11/23/24 08:30 11/23/24 08:30 11/23/24 08:00 11/23/24 08:30
Lab Data
11/23/24 03:01
11/23/24 03:01
Laboratory Results
11/23/24
03:01
PT 16.2 H
INR 1.27
APTT 37.0 H
Microbiology
11/22/24 22:08 Nasal Swab Influenza Types A & B (MILAN) - Final
Negative for Influenza A & B, NAAT
Negative results must be combined with clinical observations
and patient history.
Nucleic Acid Amplification test (NAAT)performed on the
[employer] platform.
Diagnostic Testing:
Physical Exam
-
HEENT: Normocephalic and Anicteric
Cardiovascular: S1/S2, Rub (negative), Peripheral Edema (negative) and Other (Bradycardic)
Respiratory: Clear, Wheeze (negative), Rales (negative), Rhonchi (negative) and Non-Labored Respirations
GI: Soft, Non Distended, Non Tender and Normal Bowel Sounds
Neurology: AO x 3 and Tremors (negative)
Skin: Warm and Dry
General: Respiratory Distress (negative), Comfortable, Fever (negative) and Chills (negative)
Assessment
-
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 He reports he has been taking his medications as
usual. Patient told triage that he was in an adrenal crisis. In the ER he was afebrile to 97.6 �F, pulse rate 94, breathing at 18 breaths/min, BP 126/78 and saturating 98% on room air. Initial labs showed sodium 133, potassium 5.4, calcium 10.7,
random cortisol level <0.2 and TSH 1.92. He also was COVID-19 antigen negative. CXR showed no acute cardiopulmonary process. In the ER he was given hydrocortisone, 1 L NS 0.9%, 4 mg Zofran, 1 amp of D50 and also started on D5-NS drip due to POCT
BG of 69 shortly after midnight on admission. Given that patient had bradycardia with heart rate dropping into the 30s, patient was admitted to the ICU for further care. Schedule Analyst services consulted for additional management/recommendations.
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
Impression:
#Nausea/vomiting and due to adrenal crisis resulting from medication noncompliance
#Sinus bradycardia due to above
#Hyponatremia, hyperkalemia (mild) likely due to above
#Hypoglycemia
#Low BMI with food aversion, with concern for anorexia nervosa
#APECED
# History of asthma
#History of long QT syndrome
Plan:
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
- Random cortisol level was undetectable at <0.2, and TSH was WNL at 1.92
- Serum sodium level is also reduced, which is chronic for him (baseline 131�133), and potassium level mildly increased, again reinforcing adrenal insufficiency as the cause
- CXR was clear with no signs of pneumonia
- Given that the patient developed adrenal crisis from medication noncompliance, I will resume his home hydrocortisone 10mg BID and stop stress dose steroids; continue Florinef 0.2 mg daily
- Maintain MAP>65 with goal HR >50
- Consult cardiology
- Continue to monitor potassium level and keep [K] <5.5
- Glucose levels were 69 via POCT on admission � continue with supplemental dextrose infusion; can discontinue once patient is tolerating sufficient PO intake; goal BG >100 and <180
- Consult endocrinology
- Given his low BMI of 14 with food aversion, I will consult psychiatry
- Maintain SpO2 >90-94% using supplemental O2 if needed
- Replete electrolytes with K>4, Mg>2
- Trend H/H and transfuse if needed to keep Hb>7g/dL; keep plt>20k, unless there is concern for bleeding then keep plt>50k
- prn nebulized bronchodilators - not currently bronchospastic
- Incentive spirometer encouraged 10x per hour for at least 4 hrs a day
- DVT ppx: start LMWH
Patient is stable for downgrade out of ICU to telemetry. No additional recommendations at this time. Schedule Analyst/Pulmonary service will now sign off. Thank you for allowing us to be involved in the care of this patient. Please reconsult if there
are any additional questions/concerns, or if patient's respiratory status deteriorates.
Data:
CXR 11/23/2024:
1. Clear lungs without significant change compared to prior chest x-ray.
2. Prominence of the main pulmonary trunk, a nonspecific finding in a young patient. Please correlate for signs and symptoms of pulmonary hypertension
Total time spent today was 58 minutes for this encounter. Time includes reviewing laboratory test/imaging results, reviewing pertinent medical records, obtaining and reviewing medical history, performing an appropriate exam, ordering medications,
tests and procedures. Time also includes documentation of this encounter, coordinating patient care and communicating with other healthcare professionals. Total time does not include separately billed tests performed on this date of service.
[2024-11-23] MEDS: FLORINEF 0.2 MG PO (08:44)
[2024-11-23] MEDS: PROZAC 10 MG PO (08:44)
--- NOTE | 2024-11-23 09:26 | PTCARENOTE ---
report received. assessments per work list. patient alert and oriented. fatigued but states 'I feel much better'. denies pain and nausea.tolerating sips of clears. standing to void, jacob urine. lungs clear. monitor sinus rhythm with prolonged QT,
pac's and irregular rate, rhythm with activity. call canchola in reach. patient updated re:plan of care
--- NOTE | 2024-11-23 10:14 | CM ---
CM following re: discharge planning.
Reviewed pt's chart, met with pt.
Pt is a 19 year old male, admitted with primary dx of Adrenal Crisis. Rex's Disease.
Pt reports he lives with parents 2SH, 2 steps to enter. 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
PCP: Ranjit Copeland
Pharmacy: [facility]
D/C plan: home with no after care VN needs.
CM will follow with discharge plan updates as needed.
[2024-11-23 12:27] LABS: Glucose - Point of Care 140 mg/dl (70-99)
--- NOTE | 2024-11-23 12:58 | CS.PSYCHR ---
Consult Summary - Psychiatry
-
Pt is a 19 yo male with PMH significant for adrenal insufficiency, APECED who presented to ED complaining of N/V and weakness. Patient reported his symptoms started the night before, with multiple episodes of N/V. Pt stated he has been taking
his prescribed medications. In the ED, patient was noted to be tachycardic, hypotensive and hypoglycemic. Pt has low BMI 14.7. Psychiatry asked to assess regarding potential anorexia/depression. On interview, pt cooperative but somewhat guarded
and detached. He states he has struggled with gaining weight his whole life, would like to gain, has been taking supplements like Ensure, now on 'Mass milka'. Pt states he has a good appetite, eats meals, states he was placed on a regular diet
here. He reports feeling better, expects to be transferred out of the ICU.
Psych Hx: unspecified anxiety and depression, states community resource officer to hospitalization here at last summer. Pt on Prozac 10 mg QD Rx by PCP. No psychiatric follow-up. Reportedly saw a therapist briefly but did not continue
SH: single, employed, lives with parents
MSE: alert, oriented, calm, cooperative. Somewhat guarded, with detached affect. Speech coherent, thought goal-directed. No signs of psychosis. Mood stable, denies depression. Insight appears limited to fair
Imp: Adjustment d/o with anxiety/depression, stable
Rec: Outpatient therapy; continue Prozac 10 mg QD managed by PCP. Discussed with Dr Casey
Psychiatry will sign off
--- NOTE | 2024-11-23 12:58 | PTCARENOTE ---
Addendum entered by Adalgisa Clay RN 11/23/24 14:19:
phone report to east RN, transfer with monitor and belongings
Original Note:
patient assessments unchanged. down grade to tele level of care.
--- NOTE | 2024-11-23 14:33 | PTCARENOTE ---
Patient received from the ICU. Vital signs stable. NSR with heart rate in the 60s/prolonged QT interval that has not changed. Denies complaints at this time. Oriented to room, use of call canchola and TV/bed controls. Patient verbalizes understanding of
teaching and denies questions at this time.
[2024-11-23 16:13] LABS: Glucose - Point of Care 106 mg/dl (70-99)
--- NOTE | 2024-11-23 18:28 | W.PN.UPDATE ---
Update Note
Progress Note Update
Was seen and examined. Wanted to have a diet as a nausea vomiting abdominal pain had resolved.
Advance diet as tolerated
Wean off steroids to home steroids
Had lengthy discussion about steroid compliance to prevent any further adrenal crisis
Works in [employer]
--- NOTE | 2024-11-23 18:36 | PTCARENOTE ---
Patient refusing to wear tele monitor. made aware.
[2024-11-23] MEDS: CORTEF 10 MG PO (19:58)
[2024-11-23 20:01] LABS: Glucose - Point of Care 105 mg/dl (70-99)
[2024-11-23] MEDS: DELTASONE 1 MG PO (21:46)
--- NOTE | 2024-11-23 22:00 | PTCARENOTE ---
Pt told RN he wants to leave AMA and that he feels fine to go home. He was told in ICU, that he was stable for discharge and is confused why he has to stay. He denies n/v, pain, and blood sugar at 20:00 was 109. RN educated the importance of
monitoring hr and blood sugar overnight. Pt still insisted that he feels fine to leave and is aware of the risk. RN discussed with his mom the plan to leave AMA. RN removed IV and tele box. VSS. Pt ordered an uber and ambulated out by himself with
his belongings.
--- NOTE | 2024-11-23 22:14 | W.PN.UPDATE ---
Update Note
Progress Note Update
2030 Notified by nurse that pt wanting to leave.
At bedside pt states he is feeling back to normal self. He is eating good. He was told by physicians early in day that he would be able to go home today. Reviewed with him the risks of leaving against medical advice including but not limited to:
return of adrenal crisis including severe hypotension, low HR and low blood glucose and possibly shock which can lead to . Pt is aware of the risks and knows when he is having an adrenal crisis. Explained to return to ED if not feeling well.
Continue to take is home meds as ordered. AMA paperwork signed. He will call and Uber for ride (that is also how he got to hospital).
--- NOTE | 2024-11-23 22:24 | CON.MD ---
Consultation - Medical
-
19 y.o. WM patient of our practice (Dr. 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 He was followed at [facility] until he established care with Dr Amado as an adult. His
adrenal regimen consists of prednisone 1 mg daily, hydrocortison 10 mg bid and fludrocortisone 0.2 mg total dose daily. He arrived in ER here with his second Addisonian crisis in the past couple of weeks. It is not clear what precipitated this
episode as he appears nonacute now with no signs of infection. He presented though with recurrent vomiting, hypotension, hypoglycemia and electrolyte imbalance. He recently started working 3rd shifts at [employer], so it is possible this is a contributor.
. He was appropriately treated with stress dose steroids, and was hemodynamically stable when I evaluated him this afternoon. I recommended that he take 10 mg tid of hydrocortisone, at least until he quits the 3rd shift, continue on prednisone and
fludrocortisone. He may take his methimazole again. He needs follow up in our office, though he has not been diligent in keeping appts. We will reach out to him to schedule a visit soon, thank you.
--- NOTE | 2024-11-24 09:02 | W.DCSUMMARY ---
Discharge Summary
Discharge Data
Date of Admission: 11/23/24
Date of Discharge: 11/24/24
-
Pending Results: No
Hospital Course
19y M with PMH significant for adrenal insufficiency and APECED who presents to ED complaining of N/V and weakness. Patient states that his symptoms started suddenly last PM. He notes that he has been taking his medications as usual despite
his symptoms. Was admitted to ICU started on IV fluids and IV steroids. Improvement in appetite and blood pressure along with hypoglycemia but that resolved. Was evaluated by endocrinology recommended hydrocortisone 3 times daily while working
third shift at [employer] and continue prednisone/fludrocortisone. Though he was improving he still wanted to leave AMA and so he did at 10pm per Nursing Documentation.
Discharge Plan
-
Patient Disposition: Against Medical Advice
Prescriptions:
No Action
fluoxetine 10 mg Tablet
10 mg PO DAILY
prednisone 1 mg Tablet
1 mg PO HS
methimazole 5 mg Tablet
5 mg PO DAILY
hydrocortisone 10 mg Tablet
10 mg PO BID
fludrocortisone 0.1 mg Tablet
0.2 mg PO DAILY
Discharge Date and Time
Discharge Date/Time: 11/23/24 21:57
Print Language: FAROESE
== END 2024-11-23 21:57 | disposition left against medical advice (07) | DRG 644 ==
LOC: 4 EAST ACU 01:00
PROVIDERS: Nurse Practitioner Family; ADMITTING PHYSICIAN Hospitalist; ATTENDING PHYSICIAN Hospitalist; CONSULT PHYSICIAN Internal Medicine Endocrinology, Diabetes & Metabolism; EMERGENCY PHYSICIAN Emergency Medicine; FAMILY PHYSICIAN Family Medicine; OTHER PHYSICIAN Psychiatry & Neurology Psychiatry
DX: E27.2 Addisonian crisis (principal); E87.1 Hypo-osmolality and hyponatremia; E27.1 Primary adrenocortical insufficiency; E05.90 Thyrotoxicosis, unspecified without thyrotoxic crisis or storm; F43.22 Adjustment disorder with anxiety; E16.2 Hypoglycemia, unspecified; F32.A Depression, unspecified; E87.5 Hyperkalemia; E31.0 Autoimmune polyglandular failure; R00.1 Bradycardia, unspecified; I45.81 Long QT syndrome; Z11.52 Encounter for screening for COVID-19; Z86.16 Personal history of COVID-19; Z91.148 Patient's other noncompliance with medication regimen for other reason
CPT/HCPCS: 71045; 80048; 80053; 82533; 82962; 83690; 83735; 84100; 84443; 85025; 85027; 85610; 85730; 87502; 87811; 93005; 96374; 96375; 99285

== ENCOUNTER 2025-02-20 03:43 | Inpatient (IN) | payer OTHER, SELFPAY ==
[2025-02-20] VITALS (31 sets, daily range): BP systolic 84–160; BP diastolic 35–87; BMI 14.6; BMI 14.7
[2025-02-20 00:59] LABS: Glucose - Point of Care 55 mg/dl (70-99)
[2025-02-20] MEDS: NSS 1000 IV ×3 (01:24→22:14)
[2025-02-20] MEDS: DEXTROSE 50% SYRINGE 25 GRAMS IV (01:31)
[2025-02-20 01:37] LABS: Venous Blood Gas B.E. -5.4 mmol/L (-4 to +4); Venous Blood Gas HCO3 24.6 mmol/L (22-27); Venous Blood Gas O2 Sat % 79.4 %; Venous Blood Gas pCO2 66 mmHg (35-48); Venous Blood Gas pO2 52 mmHg (30-50)
[2025-02-20 01:38] LABS: % Basophils 1.3 % (0-2); % Eosinophils 6.5 % (0-6); % Immature Granulocytes 0.1 % (0-0.5); % Lymphocytes 48.4 % (20.5-51.1); % Monocytes 12.2 % (1.7-9.3); % Neutrophils 31.5 % (42.2-75.2); Absolute Basophils 0.1 10^3/uL (0-0.2); Absolute Eosinophils 0.7 10^3/uL (0-0.7); Absolute Lymphocytes 5.2 10^3/uL (1.2-3.4); Absolute Monocytes 1.3 10^3/uL (0.1-0.6); Absolute Neutrophils 3.4 10^3/uL (1.4-6.5); Hematocrit 42.2 % (39.0-52.0); Hemoglobin 14.9 g/dL (13.0-18.0); Mean Corp Hgb Conc. 35.3 g/dL (33.0-37.0); Mean Corpuscular Hgb 29.2 pg (27.0-31.0); Mean Corpuscular Volume 82.6 fL (80.0-94.0); Nucleated Red Blood Cells % 0 % (-); Platelet Count 242 10^3/uL (130-400); Red Blood Cell Count 5.11 10^6/uL (4.70-6.10); Red Cell Dist. Width 12.1 % (11.5-14.5); White Blood Cell Count 10.8 10^3/uL (4.8-10.8)
[2025-02-20 01:40] LABS: Venous Blood Gas pH 7.18 (7.32-7.43)
[2025-02-20 01:51] LABS: ALT (SGPT) 31 U/L (0-50); AST (SGOT) 53 U/L (17-59); Albumin 5.6 g/dl (3.5-5.0); Alkaline Phosphatase 100 U/L (38-126); Blood Urea Nitrogen 20 mg/dl (9-20); Calcium 10.8 mg/dl (8.4-10.2); Carbon Dioxide 22 mmol/L (22-30); Chloride 100 mmol/L (98-107); Estimated Creatinine Clearance 84 ml/min; Glucose 56 mg/dl (70-99); Potassium 4.4 mmol/L (3.5-5.1); Sodium 136 mmol/L (135-145); Total Bilirubin 2.4 mg/dl (0.2-1.3); Total Protein 8.3 g/dl (6.3-8.2); eGFR > 60.00
[2025-02-20 01:51] LABS: Lactic Acid 3.7 mmol/L (0.7-2.0)
[2025-02-20 02:09] LABS: Free T3 4.69 pg/ml (2.77-5.27); Free T4 1.35 ng/dl (0.78-2.19)
[2025-02-20] MEDS: D5/0.9% SODIUM CHLORIDE 1000 IV ×2 (02:22→05:19)
[2025-02-20] MEDS: SOLU-CORTEF 100 MG IV (02:22)
[2025-02-20 02:23] LABS: TSH 4.17 uIU/ml (0.47-4.68)
--- NOTE | 2025-02-20 02:24 | ED.GENMED ---
History of Present Illness
General
Chief Complaint: Change in Mental Status
Source: patient and family
Time Seen by Provider: 02/20/25 00:50
History of Present Illness
History of Present Illness:
Note:
CHIEF COMPLAINT(S)
Adrenal crisis with altered mental status.
HISTORY OF PRESENT ILLNESS
The patient is a 20-year-old male with a known history of autoimmune polyglandular syndrome type 1, affecting primarily the adrenal glands, who presents with symptoms suggestive of an adrenal crisis. Thirteen years post-diagnosis, he reports taking
hydrocortisone and fludrocortisone as part of his maintenance therapy. Symptoms began with confusion, described by a family member as 'talking gibberish,' and progressed to eyes rolling back, cool and clammy skin. He had an episode of altered mental
status at home, recognized by a family member, who noticed a decreased level of consciousness compared to baseline. Past episodes required intensive care due to severe bradycardia. The patient was found to be hypothermic on arrival with no recent
missed doses of medication according to family.
ADDITIONAL HISTORY OBTAINED FROM SOURCES OTHER THAN THE PATIENT
Per family member, the patient was found disoriented, unable to communicate effectively, and had episodes of eye-rolling. On the day of presentation, he completed a full shift at work prior to symptom onset. 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
nearby, and he had previous similar crises resulting in hospital admission.
CHRONIC MEDICAL CONDITIONS SIGNIFICANTLY AFFECTING CARE
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
SOCIAL DETERMINANTS AFFECTING HEALTH
The patient missed two doses of medication, potentially contributing to the current crisis.
REVIEW OF SYSTEMS
- General: Presence of altered mental status, confusion, hypothermia.
- Cardiovascular: History of severe bradycardia.
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
PHYSICAL EXAM
- General: Nursing notes reviewed and vital signs reviewed. Patient appears ashen with a cool touch, hypothermic with a rectal temperature of 91.2�F.
- Cardiovascular: Bradycardia with regular heart rhythm.
- Neurological: Speech clear but the patient appears confused with no focal deficits.
- Respiratory: No respiratory distress noted.
PROBLEM LIST
Acute:
- Adrenal crisis with altered mental status
- Hypothermia
- Bradycardia
-hypoglycemia
PLAN
The patient will be admitted for further monitoring and management of adrenal crisis. Warm blankets/salina hugger and supplemental sugar will be administered. Labs including cultures and lactate will be drawn to check for any signs of infection. A
clinical decision for stress dose steroids will be made based on ongoing assessment.
DIFFERENTIAL DIAGNOSIS
The Differential Diagnosis includes, in no particular order and is not limited to:
1. Adrenal crisis
2. Hypoglycemia
3. Hypothyroidism leading to myxedema coma
4. Electrolyte imbalance
5. Infection, such as sepsis
6. Thyroid dysfunction
7. Medication noncompliance
8. Dehydration
9. Neurological event
10. Drug overdose
CARE-UPDATE
02/20/25 - 02:25
Patient shows slight improvement in alertness, continues on warm air blanket therapy with heated intravenous fluids. Plan to recheck blood glucose levels for better monitoring of metabolic status.
EKG
My independent EKG interpretation is:
- Rhythm: Sinus bradycardia
- Heart rate: Bradycardic
- [place]: Normal
- QT interval: Prolonged
- Abnormalities: No ischemic changes
Disposition:
DIAGNOSIS
- Adrenal crisis due to adrenal insufficiency (ICD-10: E27.40)
SUMMARY OF ENCOUNTER
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 Symptoms included confusion and altered mental status, reported by the patients
father, resembling previous episodes. Initial examination revealed bradycardia, hypothermia, and altered mental status. These findings warranted an urgent management plan to stabilize his condition.
REASSESSMENT
Upon reassessment, the patients heart rate, temperature, and blood glucose levels showed improvement with ongoing intravenous fluids.
PLAN
The patient will continue to receive fluids and be kept warm using a Bearhugger in the ICU setting. Monitoring for infection was considered unnecessary due to a normal white blood cell count and the absence of a left shift. Blood cultures have been
sent for further evaluation to rule out any infection.
INDEPENDENT INTERPRETATION OF TESTS
My independent interpretation of the CBC indicates a normal white blood cell count and the absence of a left shift, decreasing the likelihood of an active infection. Chemistry reveals elevated lactic acid levels; however, the serum bicarbonate is
normal. The pH is acidotic, but I anticipate that it will improve with fluids.
MEDICAL DECISION MAKING
The patient presented with an adrenal crisis, requiring immediate intervention due to the risk of life-threatening complications. Management included intravenous fluids and active warming measures. The case complexity was compounded by the patients
pre-existing adrenal insufficiency, necessitating close monitoring and ongoing evaluation to ensure stabilization and address any potential underlying causes.
Past History
Past History
ED Past Medical History: None
ED Past Surgical History: None
Social History
Tobacco: Non-smoker
Alcohol: None
Drug: None
Phy Exam
Physical Exam
Physical Exam:
.
Course
Orders/Labs/Results
Orders:
Orders
02/20/25 00:46
Electrocardiogram (*1) Urgent
Reason for Study: Bradycardia / Tachycardia
EKG- Treatment ONCE
02/20/25 01:01
0.9% Sodium Chloride 1000 ml [Nss] 1,000 ml IV BOLUS
Dextrose 50%-Water [Dextrose 50% Syringe] 25 grams IV NOW STA
02/20/25 01:02
Salina Hugger [Salina Hugger-Treatment] ONCE
Patient's goal temperature:: 97 F
Additional Instructions:: Temperature and skin assessment per unit protocol
02/20/25 01:20
Complete Blood Count/With Diff Urgent
Lactic Acid Q4H
Comment: CANCEL 2nd LACTIC ACID IF 1st LACTIC ACID IS LESS THAN 2
Venous Blood Gas Urgent
%Oxygen/Room Air: RA
02/20/25 01:21
Acetaminophen Urgent
Alcohol Urgent
Comprehensive Metabolic Panel Urgent
Cortisol, Random Stat
Comment: ADD ON
Free T3 Stat
Free T4 Stat
TSH Stat
Blood Culture Q30M
TOPHER Source: Blood/Venous
Specimen Description:
Blood Culture Q30M
TOPHER Source: Blood/Venous
Specimen Description:
02/20/25 01:40
Hydrocortisone Sod Succinate [Solu-Cortef] 100 mg IV NOW STA
02/20/25 01:44
Add On- LAB Urgent
Tests Added?: random cortisol
02/20/25 02:00
Dextrose 5%/0.9%Sodchl 1000 ml [D5/0.9% Sodium Chloride] 1,000 ml IV 100 mls/hr
02/20/25 02:15
Bedside Glucose- Treatment ONCE
02/20/25 03:13
Admit/Transfer Patient As Directed
Co-Sign Provider:
Level of Care: Inpatient admission
Assign to:: IMU- Intermediate Care
Physician / Group: Bertha
Diagnosis: Adrenal crises
Reason for Hospitalization: Adrenal crises
Expected length of stay greater than two midnights?: Yes
ELOS- Estimated Length of Stay in days: 2
I certify the patient meets the requirements for IP care: Yes
PRN Pain Medication Management As Directed
May give lesser potent ordered pain med per pt: Yes
preference::
Protocol:: Medication orders for pain may be administered in a
manner that supports deferring to patient preference
when the pt is:
- Requesting an ordered lesser potent pain medication.
Least to most potent pain medications are defined
as: acetaminophen < NSAID < tramadol < opioids
(morphine, oxycodone, hydromorphone).
- Requesting a lesser dose of the same medication IF
ORDERED.
- Requesting a less intrusive route of administration
if both routes are prescribed by the provider (PO <
IV).
02/20/25 03:15
Code Status As Directed
Resuscitation Status: Full Code
02/20/25 03:19
CR Chest - 2 Views Stat
Comment:
Reason For Exam: eval for acute consolidation
02/20/25 03:27
0.9% Sodium Chloride 500 ml [Nss] 500 ml IV BOLUS
02/20/25 03:30
Add On- LAB Stat
Tests Added?: Alcohol
Add On- LAB Stat
Tests Added?: Tylenol
Urine Drug Abuse Screen Stat
Date Specimen was Collected: 02/20/25
Time Specimen was Collected: 05:42
NORepinephrine 4 MG/250 ML [Levophed] 4 mg in 250 ml IV PER PROTOCOL
Initial dose in mcg/min, then titrate:: 2
Titrate to keep:: SBP > 90 mmHg
Titrate by mcg/min:: 1-2 mcg/min
Frequency of titrations (minutes):: 5
Maximum dose in ICU in mcg/min:: 30
Maximum dose in IMU in mcg/min:: 8
Maximum dose in IVU in mcg/min:: 4
Begin to taper infusion when:: Remained at goal for 4hrs
Taper by mcg/min:: 1-2 mcg/min
Frequency of taper (minutes) if patient maintains goal:: 30
Taper to off?: Yes
If infusion off & no longer maintaining goal:: Contact Provider
02/20/25 03:57
Acetaminophen [Tylenol] 650 mg PO Q4HPRN PRN
Bisacodyl [Dulcolax] 10 mg RECTAL [id number] PRN
Docusate W/Senna [Senokot-S] 1 tablet PO BIDPRN PRN
Ondansetron Injectable [Zofran] 4 mg IV Q6HPRN PRN
Polyethylene Glycol Powder [Miralax] 17 grams PO DAILYPRN PRN
02/20/25 03:57
Activity As Directed
Activity Level: With Assistance
Bedside Glucose Monitoring As Directed
Frequency: q4h
Capnography/ETCO2 As Directed
Vital Signs As Directed
Frequency: Per unit guidelines
Pulse Ox/spot Check [RESP] Routine
Quantity: 1
DX Deep Vein Thrombosis Video Routine
02/20/25 04:00
Dextrose 5%/0.9%Sodchl 1000 ml [D5/0.9% Sodium Chloride] 1,000 ml IV 150 mls/hr
Flush (0.9% Sodium Chloride) [Flush (Nss)] See Dose Instructions IV PER PROTOCOL
02/20/25 05:46
Basic Metabolic Panel IN AM
Complete Blood Count/No Diff IN AM
Lactic Acid Q4H
Comment: CANCEL 2nd LACTIC ACID IF 1st LACTIC ACID IS LESS THAN 2
Magnesium IN AM
Venous Blood Gas IN AM
%Oxygen/Room Air: RA
02/20/25 05:47
Urinalysis Reflex To Culture Urgent
Date Specimen was Collected: 02/20/25
Time Specimen was Collected: 05:42
02/20/25 Breakfast
Regular
At Your Request: Limited Participation
Hydrocortisone Sod Succinate [Solu-Cortef] 50 mg IV Q6
02/20/25 08:00
Fludrocortisone Acetate [Florinef] 0.2 mg PO DAILY
Fluoxetine HCl [Prozac] 10 mg PO DAILY
02/20/25 18:00
Enoxaparin Sodium [Lovenox] 40 mg SC QPM
Abnormal Lab Results
02/20/25 02/20/25 02/20/25
00:56 01:20 01:21
MPV 12.0 H fL
(7.4-10.4)
Absolute Lymphs (auto) 5.2 H 10^3/uL
(1.2-3.4)
Absolute Monos (auto) 1.3 H 10^3/uL
(0.1-0.6)
Neutrophils % 31.5 L %
(42.2-75.2)
Monocytes % 12.2 H %
(1.7-9.3)
Eosinophils % 6.5 H %
(0-6)
VBG pH 7.18 L*
(7.32-7.43)
VBG pCO2 66 H mmHg
(35-48)
VBG pO2 52 H mmHg
(30-50)
Glucose 56 L mg/dl
(70-99)
Lactic Acid 3.7 H mmol/L
(0.7-2.0)
Calcium 10.8 H mg/dl
(8.4-10.2)
Total Bilirubin 2.4 H mg/dl
(0.2-1.3)
Total Protein 8.3 H g/dl
(6.3-8.2)
Albumin 5.6 H g/dl
(3.5-5.0)
Acetaminophen < 10 L ug/ml
(10-30)
POC Glucose 55 L* mg/dl
(70-99)
02/20/25
02:31
MPV
Absolute Lymphs (auto)
Absolute Monos (auto)
Neutrophils %
Monocytes %
Eosinophils %
VBG pH
VBG pCO2
VBG pO2
Glucose
Lactic Acid
Calcium
Total Bilirubin
Total Protein
Albumin
Acetaminophen
POC Glucose 170 H mg/dl
(70-99)
02/20/25 01:20
02/20/25 01:21
Vital Signs
Initial and Last Documented VS:
Initial Vital Signs
Pulse Resp BP Pulse Ox
32 12 123/85 100
02/20/25 00:43 02/20/25 00:43 02/20/25 00:43 02/20/25 00:43
Last Documented Vital Signs
Temp Pulse Resp BP Pulse Ox
98.6 F 64 16 101/58 96
02/20/25 05:00 02/20/25 06:30 02/20/25 06:30 02/20/25 06:00 02/20/25 06:30
*Pulse Oximetry
Patient hypoxic: no
*Critical Care Note
Total Time (30-74mins, 75-104mins- exclusive of procedures): 60 minutes
Patient Management
Discussion with other providers: Hospitalist
ED Attending Note
-
Portions of this chart may have been created with voice recognition software.� Occasional wrong word or��sound alike� substitutions may have occurred due to the inherent limitations of voice recognition software.
Discharge Plan
Departure
Patient Disposition: Admit
Date of Disposition: 02/20/25
Time of Disposition: 02:49
Admit to: ICU
Presentation/result/management discussed w/ accepting MD/DO: Hospitalist
Discharge Problem:
Acute adrenal insufficiency, Hypothermia, Hypoglycemia, Acidosis, lactic
Interventions
Interventions:
*Risk Screen - Suicide Last Done: 02/20/25 00:43
*General Assessment Last Done: 02/20/25 00:43
*Neglect/Abuse Screening Last Done: 02/20/25 00:43
*ED- Fall Risk Assessment Last Done: 02/20/25 00:43
*ED COVID-19 Vaccine History Last Done: 02/20/25 00:43
*Nursing Disposition Last Done: 02/20/25 05:22
ED- Pulmonary Assessment Last Done: 02/20/25 05:22
ED-Psychological Assessment Last Done: 02/20/25 05:22
ED- Neurological Assessment Last Done: 02/20/25 02:45
ED- Cardiac Assessment Last Done: 02/20/25 05:22
Discharge Date and Time
Discharge Date/Time: 02/20/25 05:24
[2025-02-20 02:30] LABS: Cortisol, Random < 0.2 ug/dl
[2025-02-20 02:33] LABS: Glucose - Point of Care 170 mg/dl (70-99)
--- NOTE | 2025-02-20 03:19 | HPS.HSE ---
Family Physician
-
Family Physician: Ranjit Copeland
Chief Complaint
-
Altered mental status
History of Present Illness
This is 20-year-old with history of autoimmune polyglandular syndrome type I (APECED) affecting primarily adrenal glands who presents to the emergency department with altered mental status and found to be hypotensive, hypothermic with concerns for
recurrent episode of adrenal crisis.
Patient has a known history of adrenal insufficiency secondary to the autoimmune disorder stated above. He reports to be taking hydrocortisone and fludrocortisone as part of his maintenance therapy. Patient had episode of confusion at home where
he was speaking gibberish and then had a syncopal episode with eyes rolling the back of his head and neck. Cool and clammy. Could not evaluate patient regarding history of medication use.
After some resuscitation in the ED was able to remember that he had GI symptoms earlier in the day. He said that around dinnertime he had some mild stomach upset with vomiting and diarrhea. Was nonbloody and nonbilious. He denied cough cold
fevers or chills. No urinary symptoms. He states he has had adrenal crisis associated with mild to moderate illnesses in the past. Reports compliance with his fludrocortisone, hydrocortisone, prednisone and methimazole. Denies any drug use
except for smoking THC.
He was last admitted in november for adrenal crises. At the time, he reported taking his medications as prescribed and apparently during his symptoms he continued take his medications as prescribed. He required admission to ICU and he was on steroids
and IV fluids. He did improve and despite episode of bradycardia. Was discharged on hydrocortisone 3 times daily as well as for cortisone. Was to continue his prednisone. He left the hospital AMA at that time. History of cannabis use.
In the emergency department, at the time I saw the patient his temp was 95.2 on warming measures, he was satting 100% on room air. Blood pressure was 108/50 with a pulse of 51. ECG shows profound sinus bradycardia at the rate of 31. CBC was
unremarkable. Electrolytes BUN and creatinine were also normal. Glucose was 56.
UA was negative.
Blood gas shows a pH of 7.18 with PCO2 of 66 and a bicarb of 24.
Medical History
Past Medical History
Past Medical History: Reports Other
Additional Past Medical History:
Autoimmune Wfttwhlbjwczkaxfvb-Uxzxlhzkfqu-Cinqtzroee Dystrophy
Adrenal Insufficiency
Hyperthyroidism
Anxiety / Depression
Past Surgical History: Reports Other
Additional Past Surgical History:
Multiple endoscopies, etc in childhood.
Social History
Tobacco: Non-smoker
Alcohol: Occasional
Drug: Marijuana (Occasional THC - none recently.)
Family History
Family History: Not pertinent (No family members with APECED)
Allergies / Home Medications
Allergies reflects when Allergies were last updated in [facility].
Home Medications with original date entered in [facility]
Allergy/Medication List:
Allergies
Allergy/AdvReac Type Severity Reaction Status Date / Time
albuterol Allergy Hives Verified 11/22/24 21:18
amoxicillin trihydrate Allergy Rash Verified 11/22/24 21:18
[From Augmentin]
cefprozil Allergy Rash Verified 11/22/24 21:18
midazolam Allergy agitation Verified 11/22/24 21:18
potassium clavula Allergy Rash Verified 11/22/24 21:18
*RETIRED-06/03/12
[From Augmentin]
vancomycin Allergy red kalee Verified 11/22/24 21:18
syndrome
Home Medications
fludrocortisone 0.1 mg tablet 0.2 mg PO DAILY Adrenal Insufficiency 10/28/24
fluoxetine 10 mg tablet 10 mg PO DAILY Mental Health 10/28/24
hydrocortisone 10 mg tablet 10 mg PO BID Adrenal Insufficiency 10/28/24
methimazole 5 mg tablet 5 mg PO DAILY Thyroid 10/28/24
prednisone 1 mg tablet 1 mg PO HS Adrenal Insufficiency 10/28/24
Review of Systems
-
Unable to obtain full review of systems at this time due to: Patient Non-verbal
Physical Exam
Vital Signs
Vital Signs
Temp Pulse Resp BP Pulse Ox
95.2 F L 51 17 108/59 100
02/20/25 02:40 02/20/25 02:50 02/20/25 02:45 02/20/25 02:08 02/20/25 02:45
Physical Exam
General: Well Developed and Comfortable
HEENT: Anicteric, Atraumatic, PERRLA, No Ptosis, Nose Appears Normal and Neck Nontender; No Oxygen
Respiratory: Clear; No Wheezes, Rales or Rhonchi
Cardiac: S1/S2 and Bradycardia; No Murmur
GI: Soft, Non Tender, Non Distended and Normal Bowel Sounds
Musculoskeletal: No Clubbing, No Cyanosis and No Edema
Neuro: AO x 3, Nonfocal/grossly intact and Other (Somnolent but arousable,)
Hematologic/Lymphatic: No Lymphadenopathy
Laboratory Results
-
02/20/25 01:20
02/20/25 01:21
Laboratory Results
Lactic Acid 3.7 mmol/L (0.7-2.0) H 02/20/25 01:20
Total Bilirubin 2.4 mg/dl (0.2-1.3) H 02/20/25 01:21
AST 53 U/L (17-59) 02/20/25 01:21
ALT 31 U/L (0-50) 02/20/25 01:21
Alkaline Phosphatase 100 U/L (38-126) 02/20/25 01:21
Data Reviewed
-
Diagnostic Radiology: Image Personally Visualized and interpreted
Medical Tests (Nuc Med, Echo, EKG etc): Image Personally Visualized and interpreted
Lab Data: Labs Reviewed by me
Old Records: Reviewed
Impression/Plan
-
IMPRESSION:
20-year-old with adrenal insufficiency presenting with hypotension, hypothermia and altered mental status likely secondary to acute adrenal crisis possibly precipitated by a mild gastroenteritis. He has mild hypoglycemia. No obvious infection
source with clear UA. He is afebrile. Does have a mild respiratory acidosis of uncertain etiology. Compared to initial presentation he has shown marked improvement with resolution of bradycardia and has maintained MAP > 64
Plan
Admit to IMU
s/p 1 L normal saline bolus, continue with 5% dextrose in isotonic saline, bedside glucose q 4 for now
Hydrocortisone 100 mg IV x 1 then 50 mg every 6 hours
Supportive measures including pressors as needed to maintain MAP greater than 65, Warming measures and prn dextrose
TSH ok but interpretation spurious in adrenal crises, unlikely hypothyroid
Blood cultures sent, u/a clear no indication for urine culture, Chest x-ray pending
Hold abx for now
Taper parenteral steroids over 1 to 3 days if no complicating illness
Fludrocortisone 0.2mg po daily
Hold methimazole for now
- uds and serum drug screen
Respiratory acidosis - patient w/ primary respiratory acidosis. Clear lungs. No AG. No h/o ingestions
- A&Ox3 now, protecting airways
- RR ok
- drug screen as above
DVT PPX - lovenox sq
Code status - Full Code
[2025-02-20 04:03] LABS: Acetaminophen < 10 ug/ml (10-30)
[2025-02-20 04:06] LABS: Alcohol None Detected
[2025-02-20] MEDS: NSS 500 IV (04:10)
[2025-02-20] MEDS: ZOFRAN 4 MG IV (05:19)
[2025-02-20] MEDS: SOLU-CORTEF 50 MG IV ×2 (05:19→12:21)
[2025-02-20 06:07] LABS: Glucose - Point of Care 102 mg/dl (70-99)
[2025-02-20 06:14] LABS: Urine Albumin 2+ (Neg - Trace); Urine Bilirubin Negative (Negative); Urine Character Clear (Clear); Urine Color Yellow; Urine Glucose 3+ (Negative); Urine Ketone 2+ (Negative); Urine Leukocyte Negative (Negative); Urine Nitrite Negative (Negative); Urine Occult Blood Negative (Negative); Urine Urobilinogen Negative (Neg - 1+)
[2025-02-20 06:16] LABS: Venous Blood Gas HCO3 21.1 mmol/L (22-27); Venous Blood Gas O2 Sat % 92.8 %; Venous Blood Gas pCO2 47 mmHg (35-48); Venous Blood Gas pH 7.26 (7.32-7.43); Venous Blood Gas pO2 66 mmHg (30-50)
[2025-02-20 06:23] LABS: Hematocrit 33.8 % (39.0-52.0); Hemoglobin 12.1 g/dL (13.0-18.0); Mean Corp Hgb Conc. 35.8 g/dL (33.0-37.0); Mean Corpuscular Hgb 29.3 pg (27.0-31.0); Mean Corpuscular Volume 81.8 fL (80.0-94.0); Mean Platelet Volume 11.5 fL (7.4-10.4); Platelet Count 158 10^3/uL (130-400); Red Blood Cell Count 4.13 10^6/uL (4.70-6.10); White Blood Cell Count 4.6 10^3/uL (4.8-10.8)
[2025-02-20 06:31] LABS: Lactic Acid 1.1 mmol/L (0.7-2.0)
[2025-02-20 06:46] LABS: Blood Urea Nitrogen 20 mg/dl (9-20); Calcium 8.8 mg/dl (8.4-10.2); Carbon Dioxide 19 mmol/L (22-30); Chloride 109 mmol/L (98-107); Estimated Creatinine Clearance 95 ml/min; Glucose 132 mg/dl (70-99); Magnesium 1.9 mg/dl (1.6-2.3); Potassium 4.5 mmol/L (3.5-5.1); Sodium 135 mmol/L (135-145); eGFR > 60.00
[2025-02-20 06:47] LABS: Urine Mucus Few; Urine Squamous Cell 0-2 /LPF (Few)
[2025-02-20 06:48] LABS: Urine Bacteria Few (Negative); Urine Red Blood Cell 0-2 /HPF (0-2); Urine White Cell 0-2 /HPF (0-5)
[2025-02-20 09:12] LABS: Amphetamines Negative (Negative); Barbiturates Negative (Negative); Benzodiazepines Negative (Negative); Buprenorphine Negative (Negative); Cocaine Negative (Negative); Marijuana Positive (Negative); Methadone Negative (Negative); Methamphetamines Negative (Negative); Opiates Negative (Negative); Phencyclidine Negative (Negative); Tricyclic Antidepressants Negative (Negative)
[2025-02-20] MEDS: PROZAC 10 MG PO (09:22)
[2025-02-20] MEDS: FLORINEF 0.2 MG PO (09:22)
--- NOTE | 2025-02-20 09:54 | PTCARENOTE ---
Assumed care of patient this morning. Patient has no complaints except for feeling tired. He states that his nausea is improved and ready for breakfast, educated on ordering. Capnography maintained per order. Assessment, care and VS as charted.
[2025-02-20 10:47] LABS: Glucose - Point of Care 151 mg/dl (70-99)
--- NOTE | 2025-02-20 13:49 | W.PN.HOSP.TC ---
Today's Communication/Plan
-
Pending endocrine consult
Assessment / Plan
Assessment / Plan
Impression:
20-year-old with adrenal insufficiency presenting with hypotension, hypothermia and altered mental status likely secondary to acute adrenal crisis possibly precipitated by a mild gastroenteritis. He has mild hypoglycemia. No obvious infection
source with clear UA. He is afebrile. Does have a mild respiratory acidosis of uncertain etiology. Compared to initial presentation he has shown marked improvement with resolution of bradycardia and has maintained MAP > 64
Assessment/plan:
Acute adrenal crisis
Admitted to IMU
s/p 1 L normal saline bolus, continue with 5% dextrose in isotonic saline, bedside glucose q 4 for now
Hydrocortisone 100 mg IV x 1 then 50 mg every 6 hours
Supportive measures including pressors as needed to maintain MAP greater than 65, Warming measures and prn dextrose
IVF
Blood culture
Discussed with endocrinology, will see him on consult.
Fludrocortisone 0.2mg po daily
Hold methimazole for now
UDS and serum drug screen shows marijuana
Acute respiratory acidosis - patient w/ primary respiratory acidosis.
Clear lungs. No AG. No h/o ingestions
Improved
Mild gastroenteritis.
Improving
CODE STATUS: Full code
DVT prophylaxis: Lovenox
Diet: Regular diet
Family communication: Discussed with father at bedside
Disposition: Pending endocrine consult
Total time spent on today's encounter was 65 minutes which included time spent in counseling the patient/family regarding diagnosis and treatment plan as listed above, goals of care, and symptom management. Case was discussed with nursing staff,
specialists, and care coordinators/case management. All labs and imaging personally reviewed by me. Remainder the time spent in detailed review of previous records, lab data, imaging, and other medical provider documentation.
Anticipated Discharge: 24 - 48 hours
Subjective/Interval History
-
Date of Service: February 20, 2025
Patient seen and examined at bedside, patient looks tired and sleepy but does not denies any chest pain or shortness of breath.
Later discussed with father bedside.
Objective Data
-
Labs:
Laboratory Results
02/20/25 02/20/25
01:21 05:46
WBC 4.6 L
Hgb 12.1 L
Hct 33.8 L
Plt Count 158 D
Sodium 136 135
Potassium 4.4 4.5
Chloride 100 109 H
Carbon Dioxide 22 19 L
BUN 20 20
Creatinine 0.9 0.8
Glucose 56 L 132 H
Calcium 10.8 H 8.8 D
Total Bilirubin 2.4 H
AST 53
ALT 31
Alkaline Phosphatase 100
Vital Signs:
Vital Signs
Temp Pulse Resp BP Pulse Ox
98.3 F 68 16 89/45 95
02/20/25 12:18 02/20/25 12:00 02/20/25 12:00 02/20/25 12:00 02/20/25 12:00
I&O
02/19/25 02/20/25 02/21/25
06:59 06:59 06:59
Output Total 200 / 200
Balance -200 / -200
Physical Exam
-
General: Well Developed, Well Nourished, No Apparent Distress and Comfortable
HEENT: Normocephalic, Atraumatic and Moist Mucous Membranes
Respiratory: Clear to Auscultation
Cardiac: Regular Rhythm and S1/S2
Breast: Deferred by me
GI: Soft, Nontender, Nondistended and Normal Bowel Sounds
Rectal: Deferred by Provider
Genito-urinary: Deferred by me
Musculoskeletal: No Clubbing, No Cyanosis and No Edema
Skin: Warm
Neuro: Awake, Alert and Oriented
Psych: Calm
Data Reviewed
-
Diagnostic Radiology: Image personally visualized and interpreted and Report Reviewed by me
CT Scan: Image personally visualized and interpreted and Report Reviewed by me
Ultrasound: Image personally visualized and interpreted and Report Reviewed by me
MRI: Image personally visualized and interpreted and Report Reviewed by me
Medical Tests (Nuc Med, Echo etc): Image personally visualized and interpreted and Report Reviewed by me
Labs: Labs Reviewed by me
Old Records: Reviewed
--- NOTE | 2025-02-20 16:00 | PTCARENOTE ---
Patient's mother now at bedside and updated per RN ability.
[2025-02-20] MEDS: CORTEF 20 MG PO ×2 (16:09→22:14)
[2025-02-20 16:21] LABS: Glucose - Point of Care 212 mg/dl (70-99)
[2025-02-20 19:07] LABS: Glucose - Point of Care 213 mg/dl (70-99)
[2025-02-21] VITALS (9 sets, daily range): BP systolic 91–116; BP diastolic 41–70; PULSE 64–83
[2025-02-21 00:13] LABS: Glucose - Point of Care 135 mg/dl (70-99)
--- NOTE | 2025-02-21 02:14 | PTCARENOTE ---
Pt AAOx3 able to make needs known. Pt mother at bedside. Pt bp remains stable at this time. Pt HR nicole into the 40's at times.Temp stable at this time. call canchola within reach. Assessment care and vitals as charted.
[2025-02-21 03:46] LABS: Hematocrit 28.3 % (39.0-52.0); Mean Corp Hgb Conc. 35.3 g/dL (33.0-37.0); Mean Corpuscular Hgb 29.4 pg (27.0-31.0); Mean Corpuscular Volume 83.2 fL (80.0-94.0); Mean Platelet Volume 11.9 fL (7.4-10.4); Platelet Count 136 10^3/uL (130-400); Red Cell Dist. Width 12.1 % (11.5-14.5); White Blood Cell Count 8.2 10^3/uL (4.8-10.8)
[2025-02-21 04:07] LABS: Blood Urea Nitrogen 9 mg/dl (9-20); Calcium 8.7 mg/dl (8.4-10.2); Carbon Dioxide 24 mmol/L (22-30); Chloride 111 mmol/L (98-107); Estimated Creatinine Clearance 109 ml/min; Glucose 137 mg/dl (70-99); Magnesium 2.1 mg/dl (1.6-2.3); Phosphorus 3.3 mg/dl (2.5-4.5); Potassium 4.3 mmol/L (3.5-5.1); Sodium 140 mmol/L (135-145); eGFR > 60.00
[2025-02-21 05:52] LABS: Glucose - Point of Care 134 mg/dl (70-99)
[2025-02-21] MEDS: PROZAC 10 MG PO (08:21)
[2025-02-21] MEDS: FLORINEF 0.2 MG PO (08:21)
[2025-02-21] MEDS: CORTEF 20 MG PO (08:21)
[2025-02-21] MEDS: NSS IV (09:02)
[2025-02-21 09:11] LABS: Glucose - Point of Care 205 mg/dl (70-99)
--- NOTE | 2025-02-21 09:48 | PTCARENOTE ---
Pt ambulated around unit. VSS. Denies lightheaded/dizziness/weakness. Sitting in solarium w/ mother.
[2025-02-21 12:01] LABS: Cortisol, Random 30.2 ug/dl
--- NOTE | 2025-02-21 12:24 | W.PN.HOSP.TC ---
Today's Communication/Plan
-
Discharge home today
Assessment / Plan
Assessment / Plan
Impression:
20-year-old with adrenal insufficiency presenting with hypotension, hypothermia and altered mental status likely secondary to acute adrenal crisis possibly precipitated by a mild gastroenteritis. He has mild hypoglycemia. No obvious infection
source with clear UA. He is afebrile. Does have a mild respiratory acidosis of uncertain etiology. Compared to initial presentation he has shown marked improvement with resolution of bradycardia and has maintained MAP > 64
Seen by endocrine.
Hydrocortisone switched to oral.
Repeat hydrocortisone level came back 30.2.
Will be discharged home today
Assessment/plan:
Acute adrenal crisis
Admitted to IMU
s/p 1 L normal saline bolus, continue with 5% dextrose in isotonic saline, bedside glucose q 4 for now
Hydrocortisone 100 mg IV x 1 then 50 mg every 6 hours
Supportive measures including pressors as needed to maintain MAP greater than 65, Warming measures and prn dextrose
IVF
Blood culture
Discussed with endocrinology, will see him on consult.
Fludrocortisone 0.2mg po daily
Hold methimazole for now
UDS and serum drug screen shows marijuana
02/21
Seen by endocrine.
Hydrocortisone switched to oral.
Repeat hydrocortisone level came back 30.2.
Will be discharged home today
Acute respiratory acidosis - patient w/ primary respiratory acidosis.
Clear lungs. No AG. No h/o ingestions
Improved
Mild gastroenteritis.
Improving
CODE STATUS: Full code
DVT prophylaxis: Lovenox
Diet: Regular diet
Family communication: Discussed with mother at bedside
Disposition: Discharge home today
Total time spent on today's encounter was 65 minutes which included time spent in counseling the patient/family regarding diagnosis and treatment plan as listed above, goals of care, and symptom management. Case was discussed with nursing staff,
specialists, and care coordinators/case management. All labs and imaging personally reviewed by me. Remainder the time spent in detailed review of previous records, lab data, imaging, and other medical provider documentation.
Anticipated Discharge: Today
Subjective/Interval History
-
Date of Service: February 21, 2025
Patient seen and examined at bedside, discussed with mother at bedside, denies any chest pain or shortness of breath, no abdominal pain, no nausea, no vomiting, no diarrhea or constipation.
Objective Data
-
Labs:
Laboratory Results
02/21/25
03:17
WBC 8.2
Hgb 10.0 L
Hct 28.3 L
Plt Count 136
Sodium 140
Potassium 4.3
Chloride 111 H
Carbon Dioxide 24
BUN 9
Creatinine 0.7
Glucose 137 H
Calcium 8.7
Vital Signs:
Vital Signs
Temp Pulse Resp BP Pulse Ox
98.3 F 50 13 104/58 98
02/21/25 07:55 02/21/25 10:03 02/21/25 10:03 02/21/25 10:03 02/21/25 08:02
I&O
02/20/25 02/21/25 02/22/25
06:59 06:59 06:59
Intake Total 480 / 480
Output Total 200 / 200 1200 / 1200 900 / 900
Balance -200 / -200 -720 / -720 -900 / -900
Physical Exam
-
General: Well Developed, Well Nourished, No Apparent Distress and Comfortable
HEENT: Normocephalic, Atraumatic and Moist Mucous Membranes
Respiratory: Clear to Auscultation
Cardiac: Regular Rhythm and S1/S2
Breast: Deferred by me
GI: Soft, Nontender, Nondistended and Normal Bowel Sounds
Rectal: Deferred by Provider
Genito-urinary: Deferred by me
Musculoskeletal: No Clubbing, No Cyanosis and No Edema
Skin: Warm
Neuro: Awake, Alert and Oriented
Psych: Calm
Data Reviewed
-
Diagnostic Radiology: Image personally visualized and interpreted and Report Reviewed by me
CT Scan: Image personally visualized and interpreted and Report Reviewed by me
Ultrasound: Image personally visualized and interpreted and Report Reviewed by me
MRI: Image personally visualized and interpreted and Report Reviewed by me
Medical Tests (Nuc Med, Echo etc): Image personally visualized and interpreted and Report Reviewed by me
Labs: Labs Reviewed by me
Old Records: Reviewed
--- NOTE | 2025-02-21 13:18 | CM ---
Pt is a 20 year old male, admitted with primary dx of Adrenal Crisis.
Pt reports he lives with parents 2SH, 2 steps to enter.
Pt described himself as independent in all areas [employer], drives, works.
D/C plan: home with no identified needs
PCP: Ranjit oCpeland
Pharmacy: [facility]
--- NOTE | 2025-02-21 13:31 | W.DCSUMMARY ---
Discharge Summary
Discharge Data
Date of Admission: 02/20/25
Date of Discharge: 02/21/25
-
Pending Results: No
Hospital Course
Hospital course
20-year-old with adrenal insufficiency presenting with hypotension, hypothermia and altered mental status likely secondary to acute adrenal crisis possibly precipitated by a mild gastroenteritis. He has mild hypoglycemia. No obvious infection
source with clear UA. He is afebrile. Does have a mild respiratory acidosis of uncertain etiology. Compared to initial presentation he has shown marked improvement with resolution of bradycardia and has maintained MAP > 64
Seen by endocrine.
Hydrocortisone switched to oral.
Repeat hydrocortisone level came back 30.2.
Will be discharged home today
During hospitalization patient was treated from the following
Acute adrenal crisis
Admitted to IMU
s/p 1 L normal saline bolus, continue with 5% dextrose in isotonic saline, bedside glucose q 4 for now
Hydrocortisone 100 mg IV x 1 then 50 mg every 6 hours
Supportive measures including pressors as needed to maintain MAP greater than 65, Warming measures and prn dextrose
IVF
Blood culture
Discussed with endocrinology, will see him on consult.
Fludrocortisone 0.2mg po daily
Hold methimazole for now
UDS and serum drug screen shows marijuana
02/21
Seen by endocrine.
Hydrocortisone switched to oral.
Repeat hydrocortisone level came back 30.2.
Will be discharged home today
Acute respiratory acidosis - patient w/ primary respiratory acidosis.
Clear lungs. No AG. No h/o ingestions
Improved
Mild gastroenteritis.
Improving
CODE STATUS: Full code
DVT prophylaxis: Lovenox
Diet: Regular diet
Family communication: Discussed with mother at bedside
Disposition: Discharge home today
Total time spent on today's encounter was 40 minutes which included time spent in counseling the patient/family regarding diagnosis and treatment plan as listed above, goals of care, and symptom management. Case was discussed with nursing staff,
specialists, and care coordinators/case management. All labs and imaging personally reviewed by me. Remainder the time spent in detailed review of previous records, lab data, imaging, and other medical provider documentation.
Anticipated Discharge: Today
Discharge Plan
-
Patient Disposition: Home (Routine Discharge)
Discharge Diagnosis/Procedures: Adrenal crisis
Hypertension
Condition: Good
Diet: As tolerated
Activity: As tolerated
Stand Alone Forms: Return to Work
Referrals:
Ranjit Copeland DO [Family Provider, Family Practice]
Collette Amado MD [Consulting Staff, Endocrinology] - in two to four weeks
Prescriptions:
Continued
fluoxetine 10 mg Tablet
10 mg PO DAILY
prednisone 1 mg Tablet
1 mg PO HS
methimazole 5 mg Tablet
5 mg PO DAILY
fludrocortisone 0.1 mg Tablet
0.2 mg PO DAILY
Changed
hydrocortisone 10 mg Tablet
10 mg PO TID Qty: 90 0RF
Discharge Orders:
Discharge Patient (As Directed); Ordered 02/21/25
Ordered By: Tex Mederos
Discharge Date and Time
Print Language: ITALIAN
== END 2025-02-21 15:17 | disposition home or self-care (01) | DRG 643 ==
LOC: IMU 03:43
PROVIDERS: ADMITTING PHYSICIAN Internal Medicine; ATTENDING PHYSICIAN General Practice; CONSULT PHYSICIAN Internal Medicine Endocrinology, Diabetes & Metabolism; EMERGENCY PHYSICIAN Emergency Medicine; FAMILY PHYSICIAN Family Medicine
DX: E27.2 Addisonian crisis (principal); J96.02 Acute respiratory failure with hypercapnia; E87.29 Other acidosis; K52.9 Noninfective gastroenteritis and colitis, unspecified; I10 Essential (primary) hypertension; E27.1 Primary adrenocortical insufficiency; E05.90 Thyrotoxicosis, unspecified without thyrotoxic crisis or storm; F32.A Depression, unspecified; F41.9 Anxiety disorder, unspecified; Z79.899 Other long term (current) drug therapy
CPT/HCPCS: 71046; 80048; 80053; 80143; 80306; 81003; 81015; 82077; 82533; 82805; 82962; 83605; 83735; 84100; 84439; 84443; 84481; 85025; 85027; 87040; 93005; 96361; 96365; 96366; 96375; 99291

== ENCOUNTER 2025-03-19 11:18 | Emergency (ER) | payer OTHER, SELFPAY ==
[2025-03-19 11:20] VITALS: BP 113/71
--- NOTE | 2025-03-19 12:32 | EDRN ---
Pt states he has upset abdomen w/ N/V/D and cannot keep anything down and weakness. Pt fears he may be getting into an adrenal crisis at its early stages.
[2025-03-19 12:33] VITALS: BMI 13.6
[2025-03-19 12:37] VITALS: BP 98/69
[2025-03-19 12:55] LABS: Hematocrit 41.5 % (39.0-52.0); Hemoglobin 14.8 g/dL (13.0-18.0); Mean Corp Hgb Conc. 35.7 g/dL (33.0-37.0); Mean Corpuscular Volume 82.2 fL (80.0-94.0); Nucleated Red Blood Cells % 0 % (-); Platelet Count 177 10^3/uL (130-400); Red Cell Dist. Width 12.8 % (11.5-14.5)
--- NOTE | 2025-03-19 12:57 | ED.GENMED ---
History of Present Illness
<Ranjit Reardon MD - Last Filed: 03/19/25 14:00>
General
Chief Complaint: Abdominal Symptoms
Time Seen by Provider: 03/19/25 12:37
<Altagracia Ortega MD, Resident - Last Filed: 03/19/25 16:12>
General
Source: patient
Exam Limitations: none
Nursing documentation reviewed up to this point in time: agreed with
History of Present Illness
History of Present Illness:
Mr. Stallings is a 20yoM with a PMH notable for APECED (autoimmune polyglandular syndrome type 1, which involves adrenal insufficiency), presenting with nausea/vomiting and weakness.
He has been nauseous and feeling weak since last night. He vomited once today. He endorses chills (feeling cold on the outside but warm inside). He feels similar to his prior episodes of adrenal crisis, but at the early stages.
He endorses taking his medications: hydrocortisone 10 mg TID, fludrocortisone 0.2 mg daily, prednisone 1 mg qHS, and methimazole 5 mg qAM.
He denied recent travle, sick contacts, and sick pets. He states the etiology was often not known in previous adrenal crises.
Past History
<Altagracia Ortega MD, Resident - Last Filed: 03/19/25 16:12>
Past History
ED Past Medical History: Other (Adrenal crises)
Patient has exhibited threatening behavior?: No
Social History
Employment: Employed
<Clement Santiago, DO - Last Filed: >
Past History
ED Past Medical History: None
ED Past Surgical History: None
Social History
Tobacco: Non-smoker
Alcohol: None
Drug: None
Review of Systems
<Altagracia Ortega MD, Resident - Last Filed: 03/19/25 16:12>
Review of Systems
All Other Systems: ROS reviewed and negative except as documented in HPI and ROS
Phy Exam
<Altagracia Ortega MD, Resident - Last Filed: 03/19/25 16:12>
Physical Exam
Physical Exam:
General: fatigued, wrapped in blankets, thin
Heart: bradycardic, regular rhythm; radial pulses 2+ bilaterally
Lungs: CTAB
GI: nontender to palpation; normal bowel sounds
Skin: erythematous ill-defined patches on neck; non-pruritic; no pretibial edema
Skin Exam
Skin Exam: erythema
Course
<Ranjit Reardon MD - Last Filed: 03/19/25 14:00>
Orders/Labs/Results
Orders:
Orders
03/19/25 12:31
Cardiac Monitoring- Treatment ONCE
IV Insert/Care/Rem.- Treatment PRN
03/19/25 12:48
Complete Blood Count/With Diff Urgent
Comprehensive Metabolic Panel Urgent
Lipase Urgent
Comment: ADD ON
TSH Reflex To Free T4 Urgent
Comment: ADD ON
03/19/25 13:38
Add On- LAB Urgent
Tests Added?: lipase
Hydrocortisone Sod Succinate [Solu-Cortef] 100 mg IV NOW STA
03/19/25 13:39
Add On- LAB Urgent
Tests Added?: tsh reflex t4
0.9% Sodium Chloride 1000 ml [Nss] 1,000 ml IV BOLUS
03/19/25 15:23
Ondansetron Injectable [Zofran] 4 mg IV NOW STA
Abnormal Lab Results
03/19/25
12:48
MPV 11.1 H fL
(7.4-10.4)
Absolute Lymphs (auto) 1.0 L 10^3/uL
(1.2-3.4)
Lymphocytes % 20.4 L %
(20.5-51.1)
Sodium 132 L mmol/L
(135-145)
Carbon Dioxide 20 L mmol/L
(22-30)
BUN 26 H mg/dl
(9-20)
Total Bilirubin 1.8 H mg/dl
(0.2-1.3)
03/19/25 12:48
03/19/25 12:48
Vital Signs
Initial and Last Documented VS:
Initial Vital Signs
Temp Pulse Resp BP Pulse Ox
98.0 F 73 18 113/71 99
03/19/25 11:20 03/19/25 11:20 03/19/25 11:20 03/19/25 11:20 03/19/25 11:20
Last Documented Vital Signs
Temp Pulse Resp BP Pulse Ox
98.0 F 53 16 101/71 100
03/19/25 11:20 03/19/25 13:15 03/19/25 13:15 03/19/25 13:00 03/19/25 15:56
<Altagracia Ortega MD, Resident - Last Filed: 03/19/25 16:12>
Orders/Labs/Results
Orders:
Orders
03/19/25 12:31
Cardiac Monitoring- Treatment ONCE
IV Insert/Care/Rem.- Treatment PRN
03/19/25 12:48
Complete Blood Count/With Diff Urgent
Comprehensive Metabolic Panel Urgent
Lipase Urgent
Comment: ADD ON
TSH Reflex To Free T4 Urgent
Comment: ADD ON
03/19/25 13:38
Add On- LAB Urgent
Tests Added?: lipase
Hydrocortisone Sod Succinate [Solu-Cortef] 100 mg IV NOW STA
03/19/25 13:39
Add On- LAB Urgent
Tests Added?: tsh reflex t4
0.9% Sodium Chloride 1000 ml [Nss] 1,000 ml IV BOLUS
03/19/25 15:23
Ondansetron Injectable [Zofran] 4 mg IV NOW STA
Abnormal Lab Results
03/19/25
12:48
MPV 11.1 H fL
(7.4-10.4)
Absolute Lymphs (auto) 1.0 L 10^3/uL
(1.2-3.4)
Lymphocytes % 20.4 L %
(20.5-51.1)
Sodium 132 L mmol/L
(135-145)
Carbon Dioxide 20 L mmol/L
(22-30)
BUN 26 H mg/dl
(9-20)
Total Bilirubin 1.8 H mg/dl
(0.2-1.3)
03/19/25 12:48
03/19/25 12:48
Vital Signs
Initial and Last Documented VS:
Initial Vital Signs
Temp Pulse Resp BP Pulse Ox
98.0 F 73 18 113/71 99
03/19/25 11:20 03/19/25 11:20 03/19/25 11:20 03/19/25 11:20 03/19/25 11:20
Last Documented Vital Signs
Temp Pulse Resp BP Pulse Ox
98.0 F 53 16 101/71 100
03/19/25 11:20 03/19/25 13:15 03/19/25 13:15 03/19/25 13:00 03/19/25 15:56
<Clement Santiago, DO - Last Filed: >
Orders/Labs/Results
Orders:
Orders
03/19/25 12:31
Cardiac Monitoring- Treatment ONCE
IV Insert/Care/Rem.- Treatment PRN
03/19/25 12:48
Complete Blood Count/With Diff Urgent
Comprehensive Metabolic Panel Urgent
Lipase Urgent
Comment: ADD ON
TSH Reflex To Free T4 Urgent
Comment: ADD ON
03/19/25 13:38
Add On- LAB Urgent
Tests Added?: lipase
Hydrocortisone Sod Succinate [Solu-Cortef] 100 mg IV NOW STA
03/19/25 13:39
Add On- LAB Urgent
Tests Added?: tsh reflex t4
0.9% Sodium Chloride 1000 ml [Nss] 1,000 ml IV BOLUS
03/19/25 15:23
Ondansetron Injectable [Zofran] 4 mg IV NOW STA
Abnormal Lab Results
03/19/25
12:48
MPV 11.1 H fL
(7.4-10.4)
Absolute Lymphs (auto) 1.0 L 10^3/uL
(1.2-3.4)
Lymphocytes % 20.4 L %
(20.5-51.1)
Sodium 132 L mmol/L
(135-145)
Carbon Dioxide 20 L mmol/L
(22-30)
BUN 26 H mg/dl
(9-20)
Total Bilirubin 1.8 H mg/dl
(0.2-1.3)
03/19/25 12:48
03/19/25 12:48
Vital Signs
Initial and Last Documented VS:
Initial Vital Signs
Temp Pulse Resp BP Pulse Ox
98.0 F 73 18 113/71 99
03/19/25 11:20 03/19/25 11:20 03/19/25 11:20 03/19/25 11:20 03/19/25 11:20
Last Documented Vital Signs
Temp Pulse Resp BP Pulse Ox
98.0 F 53 16 101/71 100
03/19/25 11:20 03/19/25 13:15 03/19/25 13:15 03/19/25 13:00 03/19/25 15:56
<Altagracia Ortega MD, Resident - Last Filed: 03/19/25 16:12>
MDM/Problems Addressed
MDM/Problems Addressed:
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
We will give 100 mg IV hydrocortisone and IV fluids.
Since the patient has been stable for hours, patient may resume home medications after discharge.
Chronic conditions affecting care: Other (adrenal insufficiency)
<Altagracia Ortega MD, Resident - Last Filed: 03/19/25 16:12>
*Pulse Oximetry
Patient hypoxic: no
*Critical Care Note
Total Time (30-74mins, 75-104mins- exclusive of procedures): Not Applicable
<Clement Santiago DO - Last Filed: >
*Pulse Oximetry
SaO2: 100
Oxygen Mode of Delivery: Room air
ED Attending Note
<Ranjit Reardon MD - Last Filed: 03/19/25 14:00>
ED Attending Note
Patient seen and examined by attending physician: Yes
I performed a history and physical exam of patient and discussed management with resident, I reviewed resident's note and agree with documented findings and plan of care.: Yes
ED Attending Note:
patient presents with general weakness fatigue nausea vomiting. Started last evening. History of adrenal crisis. Feels similar. No abdominal pain no fever no unusual headache.
On exam patient is generally weak appearing but nontoxic. Borderline blood pressure. No respiratory distress. Nonspecific blanching rash to the neck and upper chest. No airway issue. Lungs are clear and equal. Heart regular rate and rhythm no
murmur. Abdomen nontender. Warm and dry. Perfusing well.
Previous records reviewed.
Impression is weakness nausea vomiting all consistent with his previous adrenal issues. Fluids stress dose steroids check thyroid.
<Clement Santiago DO - Last Filed: >
-
Portions of this chart may have been created with voice recognition software.� Occasional wrong word or��sound alike� substitutions may have occurred due to the inherent limitations of voice recognition software.
Discharge Plan
Departure
Patient with high blood pressure during this ER visit?: No
Discharge Problem:
Acute adrenal insufficiency
Instructions: Dehydration, Adult (DC), Nausea and Vomiting, Adult (DC)
Prescriptions:
No Action
fluoxetine 10 mg Tablet
10 mg PO DAILY
prednisone 1 mg Tablet
1 mg PO HS
methimazole 5 mg Tablet
5 mg PO DAILY
fludrocortisone 0.1 mg Tablet
0.2 mg PO DAILY
hydrocortisone 10 mg Tablet
10 mg PO TID Qty: 90 0RF
Referrals:
Ranjit Copeland DO [Family Provider, [facility]]
Activity Restrictions/Additional Instructions:
Dear Clement, you came to the ED because you recognized your signs of potentially going into an adrenal crisis, with nausea, vomiting, and weakness.
You likely were in the early stages of adrenal crisis, with blood pressure and heart rate, as well as feeling cold.
You were give 100 mg hydrocortisone via IV as as well as IV fluids. Please resume your home medications when you return home - good job taking them.
Please return if you feel the symptoms of an adrenal crisis (including nausea, fatigue, chills, decreased consciousness, lightheadedness). It was a pleasure to be a part of your care team.
Interventions
Interventions:
*Risk Screen - Suicide Last Done: 03/19/25 11:20
*General Assessment Last Done: 03/19/25 12:34
*Neglect/Abuse Screening Last Done: 03/19/25 11:20
*ED- Fall Risk Assessment Last Done: 03/19/25 12:34
*ED COVID-19 Vaccine History Last Done: 03/19/25 12:34
VN-Eyzbhz-Unsbroskgl Assessment Last Done: 03/19/25 12:54
ED- Cardiac Assessment Last Done: 03/19/25 12:54
ED- Neurological Assessment Last Done: 03/19/25 12:54
ED- Pulmonary Assessment Last Done: 03/19/25 12:54
Discharge Date and Time
Print Language: URUGUAYAN
[2025-03-19 13:00] VITALS: BP 101/71
--- NOTE | 2025-03-19 13:19 | EDRN ---
Resident Dr. Ortega was in to see pt.
[2025-03-19 13:32] LABS: ALT (SGPT) 22 U/L (0-50); AST (SGOT) 35 U/L (17-59); Albumin 4.9 g/dl (3.5-5.0); Alkaline Phosphatase 93 U/L (38-126); Blood Urea Nitrogen 26 mg/dl (9-20); Calcium 9.6 mg/dl (8.4-10.2); Carbon Dioxide 20 mmol/L (22-30); Chloride 99 mmol/L (98-107); Estimated Creatinine Clearance 78 ml/min; Glucose 83 mg/dl (70-99); Potassium 5.0 mmol/L (3.5-5.1); Sodium 132 mmol/L (135-145); Total Protein 7.2 g/dl (6.3-8.2); eGFR > 60.00
[2025-03-19 13:55] LABS: Lipase 77 U/L (23-300)
[2025-03-19 14:03] VITALS: BP 97/64
--- NOTE | 2025-03-19 15:07 | ED.GENMED ---
History of Present Illness
<Altagracia Ortega MD, Resident - Last Filed: 03/19/25 16:14>
General
Chief Complaint: Abdominal Symptoms
Time Seen by Provider: 03/19/25 12:37
Past History
<Altagracia Ortega MD, Resident - Last Filed: 03/19/25 16:14>
Past History
ED Past Medical History: None
ED Past Surgical History: None
Social History
Tobacco: Non-smoker
Alcohol: None
Drug: None
Course
<Altagracia Ortega MD, Resident - Last Filed: 03/19/25 16:14>
Orders/Labs/Results
Orders:
Orders
03/19/25 12:31
Cardiac Monitoring- Treatment ONCE
IV Insert/Care/Rem.- Treatment PRN
03/19/25 12:48
Complete Blood Count/With Diff Urgent
Comprehensive Metabolic Panel Urgent
Lipase Urgent
Comment: ADD ON
TSH Reflex To Free T4 Urgent
Comment: ADD ON
03/19/25 13:38
Add On- LAB Urgent
Tests Added?: lipase
Hydrocortisone Sod Succinate [Solu-Cortef] 100 mg IV NOW STA
03/19/25 13:39
Add On- LAB Urgent
Tests Added?: tsh reflex t4
0.9% Sodium Chloride 1000 ml [Nss] 1,000 ml IV BOLUS
03/19/25 15:23
Ondansetron Injectable [Zofran] 4 mg IV NOW STA
Abnormal Lab Results
03/19/25
12:48
MPV 11.1 H fL
(7.4-10.4)
Absolute Lymphs (auto) 1.0 L 10^3/uL
(1.2-3.4)
Lymphocytes % 20.4 L %
(20.5-51.1)
Sodium 132 L mmol/L
(135-145)
Carbon Dioxide 20 L mmol/L
(22-30)
BUN 26 H mg/dl
(9-20)
Total Bilirubin 1.8 H mg/dl
(0.2-1.3)
03/19/25 12:48
03/19/25 12:48
Vital Signs
Initial and Last Documented VS:
Initial Vital Signs
Temp Pulse Resp BP Pulse Ox
98.0 F 73 18 113/71 99
03/19/25 11:20 03/19/25 11:20 03/19/25 11:20 03/19/25 11:20 03/19/25 11:20
Last Documented Vital Signs
Temp Pulse Resp BP Pulse Ox
98.0 F 53 16 101/71 100
03/19/25 11:20 03/19/25 13:15 03/19/25 13:15 03/19/25 13:00 03/19/25 15:56
<Ranjit Reardon MD - Last Filed: 03/19/25 16:14>
Orders/Labs/Results
Orders:
Orders
03/19/25 12:31
Cardiac Monitoring- Treatment ONCE
IV Insert/Care/Rem.- Treatment PRN
03/19/25 12:48
Complete Blood Count/With Diff Urgent
Comprehensive Metabolic Panel Urgent
Lipase Urgent
Comment: ADD ON
TSH Reflex To Free T4 Urgent
Comment: ADD ON
03/19/25 13:38
Add On- LAB Urgent
Tests Added?: lipase
Hydrocortisone Sod Succinate [Solu-Cortef] 100 mg IV NOW STA
03/19/25 13:39
Add On- LAB Urgent
Tests Added?: tsh reflex t4
0.9% Sodium Chloride 1000 ml [Nss] 1,000 ml IV BOLUS
03/19/25 15:23
Ondansetron Injectable [Zofran] 4 mg IV NOW STA
Abnormal Lab Results
03/19/25
12:48
MPV 11.1 H fL
(7.4-10.4)
Absolute Lymphs (auto) 1.0 L 10^3/uL
(1.2-3.4)
Lymphocytes % 20.4 L %
(20.5-51.1)
Sodium 132 L mmol/L
(135-145)
Carbon Dioxide 20 L mmol/L
(22-30)
BUN 26 H mg/dl
(9-20)
Total Bilirubin 1.8 H mg/dl
(0.2-1.3)
03/19/25 12:48
03/19/25 12:48
Vital Signs
Initial and Last Documented VS:
Initial Vital Signs
Temp Pulse Resp BP Pulse Ox
98.0 F 73 18 113/71 99
03/19/25 11:20 03/19/25 11:20 03/19/25 11:20 03/19/25 11:20 03/19/25 11:20
Last Documented Vital Signs
Temp Pulse Resp BP Pulse Ox
98.0 F 53 16 101/71 100
03/19/25 11:20 03/19/25 13:15 03/19/25 13:15 03/19/25 13:00 03/19/25 15:56
<Altagracia Ortega MD, Resident - Last Filed: 03/19/25 16:14>
*Pulse Oximetry
SaO2: 100
Oxygen Mode of Delivery: Room air
<Ranjit Reardon MD - Last Filed: 03/19/25 16:14>
Update Note
Update Note:
1615... Patient ate well without issues. Is nontoxic. Stable vital signs. Stable labs and thyroid. Will finish a liter of fluid and discharge. Patient is comfortable with this approach
ED Attending Note
<Altagracia Ortega MD, Resident - Last Filed: 03/19/25 16:14>
-
Portions of this chart may have been created with voice recognition software.� Occasional wrong word or��sound alike� substitutions may have occurred due to the inherent limitations of voice recognition software.
Discharge Plan
Departure
Patient Disposition: Home (Routine Discharge)
Date of Disposition: 03/19/25
Time of Disposition: 16:14
Patient with high blood pressure during this ER visit?: No
Discharge Problem:
Acute adrenal insufficiency
Instructions: Dehydration, Adult (DC), Nausea and Vomiting, Adult (DC)
Prescriptions:
No Action
fluoxetine 10 mg Tablet
10 mg PO DAILY
prednisone 1 mg Tablet
1 mg PO HS
methimazole 5 mg Tablet
5 mg PO DAILY
fludrocortisone 0.1 mg Tablet
0.2 mg PO DAILY
hydrocortisone 10 mg Tablet
10 mg PO TID Qty: 90 0RF
Referrals:
Ranjit Copeland DO [Family Provider, Family Practice] - Follow up in 2-3 days
Stand Alone Forms: Return to Work
Activity Restrictions/Additional Instructions:
Deatasneem Vaughan, you came to the ED because you recognized your signs of potentially going into an adrenal crisis, with nausea, vomiting, and weakness.
You likely were in the early stages of adrenal crisis, with blood pressure and heart rate, as well as feeling cold.
You were give 100 mg hydrocortisone via IV as as well as IV fluids. Please resume your home medications when you return home - good job taking them.
Please return if you feel the symptoms of an adrenal crisis (including nausea, fatigue, chills, decreased consciousness, lightheadedness). It was a pleasure to be a part of your care team.
Interventions
Interventions:
*Risk Screen - Suicide Last Done: 03/19/25 11:20
*General Assessment Last Done: 03/19/25 12:34
*Neglect/Abuse Screening Last Done: 03/19/25 11:20
*ED- Fall Risk Assessment Last Done: 03/19/25 12:34
*ED COVID-19 Vaccine History Last Done: 03/19/25 12:34
HP-Byyemr-Xjfcosnthr Assessment Last Done: 03/19/25 12:54
ED- Cardiac Assessment Last Done: 03/19/25 12:54
ED- Neurological Assessment Last Done: 03/19/25 12:54
ED- Pulmonary Assessment Last Done: 03/19/25 12:54
Discharge Date and Time
Print Language: LITHUANIAN
[2025-03-19] MEDS: NSS 1000 IV (15:38)
[2025-03-19] MEDS: SOLU-CORTEF 100 MG IV (15:38)
[2025-03-19] MEDS: ZOFRAN 4 MG IV (15:38)
[2025-03-19 15:39] VITALS: BP 104/70
[2025-03-19 16:00] VITALS: BP 117/66
== END 2025-03-19 17:43 | disposition home or self-care (01) ==
LOC: EMR 11:18
PROVIDERS: EMERGENCY PHYSICIAN Emergency Medicine; FAMILY PHYSICIAN Family Medicine
DX: E27.40 Unspecified adrenocortical insufficiency (principal)
CPT/HCPCS: 99283; 96374; 96375; 96361; 80053; 83690; 84443; 85025

== ENCOUNTER 2025-06-06 11:35 | Emergency (ER) | payer OTHER, SELFPAY ==
[2025-06-06 11:37] VITALS: BP 118/77
--- NOTE | 2025-06-06 11:56 | ED.GENMED ---
History of Present Illness
General
Chief Complaint: Chest Pain
Source: patient
Exam Limitations: none
Time Seen by Provider: 06/06/25 11:56
Nursing documentation reviewed up to this point in time: agreed with
History of Present Illness
History of Present Illness:
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
Patient states about 6 PM last night after eating he felt okay but then a while later 'I just vomited, I do not know why.' He denies having felt nauseous. He denies nausea at this time. At 7 AM this morning he woke up with chest pain described as
'twisting wrenching in my heart.' At this time the chest pain is 'subtle.'
At this time patient states his legs, arms, whole body feels weak.
A.m. he went to work his shift at [employer], at 9 AM he vomited 3 times by 10:40 and had to leave work. He denies nausea at this time he feels tired. He has not eaten all day due to his vomiting. He denies fever.\\
He has had similar episodes in the past.
He was admitted to ICU on 02/22/2025 with adrenal crisis
Past History
Past History
ED Past Medical History: None
ED Past Surgical History: None
Patient has exhibited threatening behavior?: No
Social History
Tobacco: Non-smoker
Alcohol: None
Drug: None
Employment: Employed
Phy Exam
Physical Exam
Physical Exam:
GENERAL: No acute distress. A&Ox3.
CONSTITUTIONAL: Afebrile.
EYES: clear, conjunctivae normal
ENMT: moist mucus membranes, Pharynx nl
RESPIRATORY: Regular respirations, nonlabored, lungs clear.
CARDIOVASCULAR: Regular rate and rhythm, no murmurs, no rubs.
GI: Soft, nontender, normal BS
MUSCULOSKELETAL: Moves with ease. Well perfused.
SKIN: Warm, dry, pink
PSYCH: Normal mood and affect. Well kept, interactive and appropriate
NEUROLOGIC: Awake, alert and oriented. No focal neurological deficits
Scores
Heart Score for Chest Pain Patients
STEMI patient?: Not applicable
Course
Orders/Labs/Results
Orders:
Orders
06/06/25 11:39
Electrocardiogram (*1) Urgent
Reason for Study: Chest Pain
EKG- Treatment ONCE
06/06/25 12:10
0.9% Sodium Chloride 1000 ml [Nss] 1,000 ml IV BOLUS
06/06/25 12:13
Ondansetron Injectable [Zofran] 4 mg .ROUTE .STK-MED ONE
Ondansetron Injectable [Zofran] 4 mg IV NOW STA
06/06/25 12:21
Complete Blood Count/With Diff Urgent
Comprehensive Metabolic Panel Urgent
Lipase Urgent
TSH Reflex To Free T4 Urgent
06/06/25 13:28
Hydrocortisone Sod Succinate [Solu-Cortef] 100 mg IV NOW STA
Abnormal Lab Results
06/06/25
12:21
MPV 11.4 H fL
(7.4-10.4)
Absolute Monos (auto) 0.8 H 10^3/uL
(0.1-0.6)
Monocytes % 10.0 H %
(1.7-9.3)
Sodium 130 L mmol/L
(135-145)
Potassium 5.5 H mmol/L
(3.5-5.1)
Carbon Dioxide 21 L mmol/L
(22-30)
BUN 24 H mg/dl
(9-20)
Total Bilirubin 2.1 H mg/dl
(0.2-1.3)
Albumin 5.1 H g/dl
(3.5-5.0)
06/06/25 12:21
06/06/25 12:21
Vital Signs
Initial and Last Documented VS:
Initial Vital Signs
Temp Pulse Resp BP Pulse Ox
98.5 F 96 16 118/77 98
06/06/25 11:37 06/06/25 11:37 06/06/25 11:37 06/06/25 11:37 06/06/25 11:37
Last Documented Vital Signs
Temp Pulse Resp BP Pulse Ox
98.5 F 67 13 103/58 100
06/06/25 11:37 06/06/25 15:30 06/06/25 15:30 06/06/25 15:00 06/06/25 15:30
MDM/Problems Addressed
Differential Diagnosis Includes:
Adrenal crisis, gastroenteritis, dehydration
MDM/Problems Addressed:
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
Patient states about 6 PM last night after eating he felt okay but then a while later 'I just vomited, I do not know why.' He denies having felt nauseous. He denies nausea at this time. At 7 AM this morning he woke up with chest pain described as
'twisting wrenching in my heart.' At this time the chest pain is 'subtle.'
At this time patient states his legs, arms, whole body feels weak.
A.m. he went to work his shift at [employer], at 9 AM he vomited 3 times by 10:40 and had to leave work. He denies nausea at this time he feels tired. He has not eaten all day due to his vomiting. He denies fever.\\
He has had similar episodes in the past.
He was admitted 02/22/2025 with adrenal crisis
EKG: Normal sinus, heart rate 61
12:30 PM:
Patient just vomited, Zofran IV ordered
CBC normal
CMP: Sodium 130, K5.5, BUN 24, abnormalities most likely due to hemoconcentration/dehydration
Lipase WNL
TSH normal
2:45 p.m.
After IVFs, Zofran, Stress dose of Solucortef, pt feeling much better
Patient takes fludrocortisone 0.1 mg twice daily, hydrocortisone 10 mg 3 times a day and is now requesting I fill a prescription for prednisone 1 mg daily which she has been taking until 2 weeks ago when he ran out.
He states he spoke with someone at the [facility] and along with his PCP Dr. Copeland and Dr. Amado he is supposed be taking the prednisone 1 mg daily. He feels the fact that he ran out may have contributed to his symptoms today
I sent a prescription to his pharmacy for prednisone 1 mg daily x 7 days to give him a chance to get in touch with his PCP or binder folder operator.
He states he has been calling his binder folder operator for refill and appointment and 'nobody is answering the phone.' I sent a text message to Dr. Amado to have someone from his office reach out to him tomorrow for an appointment. I informed
Aneudy of pt need for rx for Prednisone. He texted back appreciating the information
*Pulse Oximetry
SaO2: 98
Oxygen Mode of Delivery: Room air
Patient hypoxic: no
*EKG
EKG Intrepretation Date: 06/06/25
Interpretation: normal
Heart Rate: 61
Rate: normal
Rhythm: sinus
Wins[place]: normal axis
Interval: normal interval
QRS Pattern: normal QRS
Ischemia: no ischemia
*Critical Care Note
Total Time (30-74mins, 75-104mins- exclusive of procedures): Not Applicable
ED Attending Note
-
Portions of this chart may have been created with voice recognition software.� Occasional wrong word or��sound alike� substitutions may have occurred due to the inherent limitations of voice recognition software.
Discharge Plan
Departure
Patient Disposition: Home (Routine Discharge)
Date of Disposition: 06/06/25
Time of Disposition: 15:04
Patient with high blood pressure during this ER visit?: No
Condition: Good
Discharge Problem:
Nausea & vomiting, Acute adrenal insufficiency
Prescriptions:
New
prednisone 1 mg tablet
1 mg PO DAILY Qty: 7 0RF
ondansetron 4 mg tablet,disintegrating
4 mg PO Q6H PRN (Reason: nausea and vomiting) Qty: 14 0RF
No Action
fluoxetine 10 mg Tablet
10 mg PO DAILY
prednisone 1 mg Tablet
1 mg PO HS
methimazole 5 mg Tablet
5 mg PO DAILY
fludrocortisone 0.1 mg Tablet
0.2 mg PO DAILY
hydrocortisone 10 mg Tablet
10 mg PO TID Qty: 90 0RF
Referrals:
Ranjit Copeland DO [Family Provider, Family Practice]
Collette Amado MD [Consulting Staff, Endocrinology] - Tomorrow
Activity Restrictions/Additional Instructions:
As we discussed, I was in contact with with Dr. Amado and asked him if you would have someone from the office reach out to you tomorrow for an appointment. I informed him that I am giving you a prescription for the prednisone for a week and that
you will need a refill.
Continue your current medications
I also sent a prescription to your pharmacy for Zofran to use as needed for nausea.
Interventions
Interventions:
*Risk Screen - Suicide Last Done: 06/06/25 11:39
*General Assessment Last Done: 06/06/25 12:23
*Neglect/Abuse Screening Last Done: 06/06/25 11:39
*ED- Fall Risk Assessment Last Done: 06/06/25 12:23
*ED COVID-19 Vaccine History Last Done: 06/06/25 12:23
*Nursing Disposition Last Done: 06/06/25 15:36
ED- Cardiac Assessment Last Done: 06/06/25 12:24
Discharge Date and Time
Discharge Date/Time: 06/06/25 15:47
Print Language: MAORI
[2025-06-06 12:00] VITALS: BP 93/70
[2025-06-06] MEDS: NSS 1000 IV (12:22)
[2025-06-06] MEDS: ZOFRAN 4 MG IV (12:22)
[2025-06-06 12:23] VITALS: BMI 14.0
[2025-06-06 12:33] LABS: Hematocrit 41.8 % (39.0-52.0); Hemoglobin 14.9 g/dL (13.0-18.0); Mean Corp Hgb Conc. 35.6 g/dL (33.0-37.0); Mean Corpuscular Volume 81.2 fL (80.0-94.0); Nucleated Red Blood Cells % 0 % (-); Platelet Count 180 10^3/uL (130-400); Red Cell Dist. Width 11.9 % (11.5-14.5)
[2025-06-06 13:00] VITALS: BP 109/59
[2025-06-06 13:07] LABS: ALT (SGPT) 21 U/L (0-50); AST (SGOT) 31 U/L (17-59); Albumin 5.1 g/dl (3.5-5.0); Alkaline Phosphatase 77 U/L (38-126); Blood Urea Nitrogen 24 mg/dl (9-20); Calcium 10.1 mg/dl (8.4-10.2); Carbon Dioxide 21 mmol/L (22-30); Chloride 98 mmol/L (98-107); Estimated Creatinine Clearance 62 ml/min; Glucose 81 mg/dl (70-99); Lipase 86 U/L (23-300); Potassium 5.5 mmol/L (3.5-5.1); Sodium 130 mmol/L (135-145); Total Protein 7.5 g/dl (6.3-8.2); eGFR > 60.00
[2025-06-06] MEDS: SOLU-CORTEF 100 MG IV (13:42)
[2025-06-06 14:00] VITALS: BP 115/60
[2025-06-06 15:00] VITALS: BP 103/58
== END 2025-06-06 15:47 | disposition home or self-care (01) ==
LOC: EMR 11:35
PROVIDERS: Registered Nurse; EMERGENCY PHYSICIAN Student in an Organized Health Care Education/Training Program; FAMILY PHYSICIAN Family Medicine
DX: R11.2 Nausea with vomiting, unspecified (principal); E27.1 Primary adrenocortical insufficiency; E03.9 Hypothyroidism, unspecified
CPT/HCPCS: 99284; 96374; 96375; 96361; 80053; 83690; 84443; 85025; 93005

== ENCOUNTER 2025-07-08 20:49 | Inpatient (IN) | payer OTHER, SELFPAY ==
[2025-07-08 16:21] VITALS: BP 100/82
[2025-07-08 17:01] LABS: ALT (SGPT) 29 U/L (0-50); AST (SGOT) 38 U/L (17-59); Albumin 5.3 g/dl (3.5-5.0); Alkaline Phosphatase 77 U/L (38-126); Blood Urea Nitrogen 27 mg/dl (9-20); Calcium 10.4 mg/dl (8.4-10.2); Carbon Dioxide 19 mmol/L (22-30); Chloride 99 mmol/L (98-107); Glucose 105 mg/dl (70-99); Lipase 93 U/L (23-300); Potassium 5.3 mmol/L (3.5-5.1); Sodium 127 mmol/L (135-145); Total Protein 8.3 g/dl (6.3-8.2); eGFR > 60.00
[2025-07-08 17:06] LABS: Hematocrit 45.8 % (39.0-52.0); Hemoglobin 15.6 g/dL (13.0-18.0); Mean Corp Hgb Conc. 34.1 g/dL (33.0-37.0); Mean Corpuscular Volume 85.1 fL (80.0-94.0); Platelet Count 328 10^3/uL (130-400); Red Cell Dist. Width 12.0 % (11.5-14.5)
--- NOTE | 2025-07-08 18:22 | ED.GENMED ---
History of Present Illness
<KRYSTAL Plaza - Last Filed: 07/08/25 20:08>
General
Chief Complaint: Dehydration Symptoms
Source: patient
Exam Limitations: none
Time Seen by Provider: 07/08/25 18:02
Nursing documentation reviewed up to this point in time: agreed with
History of Present Illness
History of Present Illness:
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 Patient feels that he is in a
crisis. He started vomiting 2 days ago and now cannot keep any foods down. He is trying to drink water. He feels very weak. His medicines include hydrocortisone methimazole Florinef and prednisone.
Past History
<KRYSTAL Plaza - Last Filed: 07/08/25 20:08>
Past History
ED Past Medical History: None
ED Past Surgical History: None
Patient has exhibited threatening behavior?: No
Social History
Tobacco: Non-smoker
Alcohol: None
Drug: None
Employment: Employed
Phy Exam
<KRYSTAL Plaza - Last Filed: 07/08/25 20:08>
General Physical Exam
General Presentation: no apparent distress
General age: appears stated age
General Skin: warm and dry
General Habitus: other (thin male )
General Mental: alert
General Hydration: dry mucous membranes
Cardiovascular Exam
Cardiovascular Exam: regular rate/rhythm, no murmur and normal peripheral pulses
Pulmonary Exam
Pulmonary Exam: lungs clear and no respiratory distress
Gastrointestinal Exam
Gastrointestinal Exam: non tender and soft
Neurological Exam
Neurological Exam: alert and oriented x3
Musculoskeletal Exam
Musculoskeletal Exam: full ROM
Skin Exam
Skin Exam: normal color
Psychiatric Exam
Psychiatric Exam: normal mood/affect
Course
<KRYSTAL Plaza - Last Filed: 07/08/25 20:08>
Orders/Labs/Results
Orders:
Orders
07/08/25 16:25
Urinalysis Reflex To Culture Urgent
Date Specimen was Collected: 07/08/25
Time Specimen was Collected: 16:25
07/08/25 16:35
Complete Blood Count/With Diff Urgent
Comprehensive Metabolic Panel Urgent
Lipase Urgent
Manual Differential Urgent
Monotest Urgent
07/08/25 18:34
Hydrocortisone Sod Succinate [Solu-Cortef] 100 mg IV NOW STA
07/08/25 18:36
Ondansetron Injectable [Zofran] 4 mg IV NOW STA
07/08/25 18:38
Electrocardiogram (*1) Stat
Reason for Study: Other
Other Reason for Exam: chest pain
Cardiac Monitoring- Treatment ONCE
EKG- Treatment ONCE
0.9% Sodium Chloride 1000 ml [Nss] 1,000 ml IV BOLUS
Abnormal Lab Results
07/08/25
16:35
MPV 11.1 H fL
(7.4-10.4)
Segmented Neutrophils 27 L %
(42-75)
Eosinophils (Manual) 11 H %
(0-6)
Sodium 127 L mmol/L
(135-145)
Potassium 5.3 H mmol/L
(3.5-5.1)
Carbon Dioxide 19 L mmol/L
(22-30)
BUN 27 H mg/dl
(9-20)
Glucose 105 H mg/dl
(70-99)
Calcium 10.4 H mg/dl
(8.4-10.2)
Total Bilirubin 1.6 H mg/dl
(0.2-1.3)
Total Protein 8.3 H g/dl
(6.3-8.2)
Albumin 5.3 H g/dl
(3.5-5.0)
07/08/25 16:35
07/08/25 16:35
Vital Signs
Initial and Last Documented VS:
Initial Vital Signs
Temp Pulse Resp BP Pulse Ox
98.2 F 94 16 100/82 98
07/08/25 16:21 07/08/25 16:21 07/08/25 16:21 07/08/25 16:21 07/08/25 16:21
Last Documented Vital Signs
Temp Pulse Resp BP Pulse Ox
98.2 F 74 18 100/82 98
07/08/25 16:21 07/08/25 18:06 07/08/25 18:06 07/08/25 16:21 07/08/25 18:30
Procurement Assistant consulted with Physician
Procurement Assistant consulted with physician?: Yes
Name of Physician Consulted: Caroline
<Chin Freitas, DO - Last Filed: 07/08/25 19:46>
Orders/Labs/Results
Orders:
Orders
07/08/25 16:25
Urinalysis Reflex To Culture Urgent
Date Specimen was Collected: 07/08/25
Time Specimen was Collected: 16:25
07/08/25 16:35
Complete Blood Count/With Diff Urgent
Comprehensive Metabolic Panel Urgent
Lipase Urgent
Manual Differential Urgent
Monotest Urgent
07/08/25 18:34
Hydrocortisone Sod Succinate [Solu-Cortef] 100 mg IV NOW STA
07/08/25 18:36
Ondansetron Injectable [Zofran] 4 mg IV NOW STA
07/08/25 18:38
Electrocardiogram (*1) Stat
Reason for Study: Other
Other Reason for Exam: chest pain
Cardiac Monitoring- Treatment ONCE
EKG- Treatment ONCE
0.9% Sodium Chloride 1000 ml [Nss] 1,000 ml IV BOLUS
Abnormal Lab Results
07/08/25
16:35
MPV 11.1 H fL
(7.4-10.4)
Segmented Neutrophils 27 L %
(42-75)
Eosinophils (Manual) 11 H %
(0-6)
Sodium 127 L mmol/L
(135-145)
Potassium 5.3 H mmol/L
(3.5-5.1)
Carbon Dioxide 19 L mmol/L
(22-30)
BUN 27 H mg/dl
(9-20)
Glucose 105 H mg/dl
(70-99)
Calcium 10.4 H mg/dl
(8.4-10.2)
Total Bilirubin 1.6 H mg/dl
(0.2-1.3)
Total Protein 8.3 H g/dl
(6.3-8.2)
Albumin 5.3 H g/dl
(3.5-5.0)
07/08/25 16:35
07/08/25 16:35
Vital Signs
Initial and Last Documented VS:
Initial Vital Signs
Temp Pulse Resp BP Pulse Ox
98.2 F 94 16 100/82 98
07/08/25 16:21 07/08/25 16:21 07/08/25 16:21 07/08/25 16:21 07/08/25 16:21
Last Documented Vital Signs
Temp Pulse Resp BP Pulse Ox
98.2 F 74 18 100/82 98
07/08/25 16:21 07/08/25 18:06 07/08/25 18:06 07/08/25 16:21 07/08/25 18:30
<KRYSTAL Plaza - Last Filed: 07/08/25 20:08>
MDM/Problems Addressed
Differential Diagnosis Includes:
Not limited to acute renal insufficiency, dehydration electrolyte abnormality
MDM/Problems Addressed:
Patient is a 20-year-old male with adrenal insufficiency presents with acute nausea and vomiting dehydration for the past 2 days. Patient presents dry on exam he has a low sodium and elevated potassium and elevated BUN. Patient was given
Solu-Cortef and Zofran along with fluids. He has required admission for the past with obvious electrolyte abnormalities would recommend admission for hydration close monitoring.
Chronic conditions affecting care:
Adrenal insufficiency.
<KRYSTAL Plaza - Last Filed: 07/08/25 20:08>
*Pulse Oximetry
SaO2: 98
Oxygen Mode of Delivery: Room air
Patient hypoxic: no
*Critical Care Note
Total Time (30-74mins, 75-104mins- exclusive of procedures): Not Applicable
Data Reviewed
Review of Other/Old Records Reveals: Labs and Discharge Summary
Source: patient
ED Attending Note
<KRYSTAL Plaza - Last Filed: 07/08/25 20:08>
-
Portions of this chart may have been created with voice recognition software.� Occasional wrong word or��sound alike� substitutions may have occurred due to the inherent limitations of voice recognition software.
<Chin Freitas DO - Last Filed: 07/08/25 19:46>
ED Attending Note
Patient seen and examined by attending physician: Yes
I performed the substantive portion of visit, reviewed & personally made and approve the management plan that is documented in note by myself or ANANT.: Yes
Discharge Plan
Departure
Patient Disposition: Admit
Date of Disposition: 07/08/25
Time of Disposition: 20:06
Admit to: Telemetry
Admit to doctor: hospitalist
Presentation/result/management discussed w/ accepting MD/DO: Hospitalist
Patient with high blood pressure during this ER visit?: No
Condition: Fair
Covid-19: Not Applicable
Discharge Problem:
Acute adrenal insufficiency, Acute dehydration, Nausea & vomiting
Prescriptions:
No Action
fluoxetine 10 mg Tablet
10 mg PO DAILY
prednisone 1 mg Tablet
1 mg PO HS
methimazole 5 mg Tablet
5 mg PO DAILY
fludrocortisone 0.1 mg Tablet
0.2 mg PO DAILY
hydrocortisone 10 mg Tablet
10 mg PO TID Qty: 90 0RF
prednisone 1 mg tablet
1 mg PO DAILY Qty: 7 0RF
ondansetron 4 mg tablet,disintegrating
4 mg PO Q6H PRN (Reason: nausea and vomiting) Qty: 14 0RF
Referrals:
Ranjit Copeland DO [Family Provider, Family Practice]
Interventions
Interventions:
*Risk Screen - Suicide Last Done: 07/08/25 16:24
*General Assessment Last Done: 07/08/25 18:12
*Neglect/Abuse Screening Last Done: 07/08/25 16:24
*ED- Fall Risk Assessment Last Done: 07/08/25 18:12
ED- Cardiac Assessment Last Done: 07/08/25 18:07
ED- Neurological Assessment Last Done: 07/08/25 18:07
ED- Pulmonary Assessment Last Done: 07/08/25 18:07
Discharge Date and Time
Print Language: ETHIOPIAN
[2025-07-08 19:00] VITALS: BP 99/62
[2025-07-08] MEDS: ZOFRAN 4 MG IV (19:09)
[2025-07-08] MEDS: SOLU-CORTEF 100 MG IV (19:09)
[2025-07-08] MEDS: NSS 1000 IV ×2 (19:10→21:52)
[2025-07-08 19:14] VITALS: BMI 14.0
[2025-07-08 19:20] LABS: Absolute Neutrophils -Man Diff 2.2 10^3/uL (1.4-6.5)
[2025-07-08 19:21] LABS: Normal RBC Morphology Yes; Platelets Checked Yes; Total Cells Counted 100
[2025-07-08 20:00] VITALS: BP 94/62
--- NOTE | 2025-07-08 20:15 | HPS.HSE ---
Addendum entered and electronically signed by Tex Mederos MD 07/08/25 20:43:
Hyponatremia/hyperkalemia
Secondary to adrenal insufficiency
Original Note:
Family Physician
-
Family Physician: Ranjit Copeland
Chief Complaint
-
Nausea, vomiting, diarrhea
History of Present Illness
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
diarrhea, patient admitted in March with similar condition and treated for adrenal crisis and since then hydrocortisone increased to 10 mg 3 times daily, patient told me follow-up with endocrine after discharge.
Initial blood work in the ER shows evidence of hyponatremia/hyperkalemia, patient received IV fluid patient seen and examined at bedside, denies any chest pain but admit heart pain and epigastric pain, shortness of breath.
Patient will be admitted to IMU
Medical History
Past Medical History
Past Medical History: Reports Other
Additional Past Medical History:
Autoimmune Nvegsrjnouyabcyvrx-Arujnbyvwtc-Fvpplnjtoz Dystrophy
Adrenal Insufficiency
Hyperthyroidism
Anxiety / Depression
Past Surgical History: Reports Other
Additional Past Surgical History:
Multiple endoscopies, etc in childhood.
Social History
Tobacco: Non-smoker
Alcohol: Occasional
Drug: Marijuana (Occasional THC - none recently.)
Family History
Family History: Not pertinent (No family members with APECED)
Allergies / Home Medications
Allergies reflects when Allergies were last updated in [facility].
Home Medications with original date entered in [facility]
Allergy/Medication List:
Allergies
Allergy/AdvReac Type Severity Reaction Status Date / Time
albuterol Allergy Hives Verified 07/08/25 16:24
amoxicillin trihydrate (From Allergy Rash Verified 07/08/25 16:24
Augmentin)
cefprozil Allergy Rash Verified 07/08/25 16:24
midazolam Allergy agitation Verified 07/08/25 16:24
potassium clavula Allergy Rash Verified 07/08/25 16:24
*RETIRED-06/03/12 (From
Augmentin)
vancomycin Allergy red kalee Verified 07/08/25 16:24
syndrome
Home Medications
fludrocortisone 0.1 mg tablet 0.2 mg PO DAILY Adrenal Insufficiency 10/28/24
fluoxetine 10 mg tablet 10 mg PO DAILY Mental Health 10/28/24
methimazole 5 mg tablet 5 mg PO DAILY Thyroid 10/28/24
prednisone 1 mg tablet 1 mg PO HS Adrenal Insufficiency 10/28/24
hydrocortisone 10 mg tablet 10 mg PO TID Adrenal Insufficiency #90 tabs 02/21/25
ondansetron 4 mg disintegrating tablet 4 mg PO Q6H PRN nausea and vomiting #14 tabs 06/06/25
prednisone 1 mg tablet 1 mg PO DAILY #7 tabs 06/06/25
Review of Systems
-
A 12 point ROS was completed and negative except as noted: Yes
Constitutional: Reports Fatigue; Denies Fever, Weight Gain, Weight Loss or Sleep Disturbance
EENT: Denies Tearing, Sore Throat, Mouth Pain, Mouth Swelling or Runny Nose
Respiratory: Denies Cough, Hemoptysis or Trouble Breathing
Cardiac: Reports Chest Pain; Denies Diaphoresis, Palpitations or Syncope
Abdomen/GI: Reports Nausea, Vomiting and Diarrhea; Denies Abdominal Pain, Constipated, Bloody Stools or Black Stools
: Denies Dysuria, Frequency, Flank Pain, Incontinence, Difficulty Voiding, Urgency, Bleeding or Dark Urine
Musculoskeletal: Denies Joint Pain, Joint Swelling, Muscle Pain, Muscle Stiffness or Edema
Skin: Denies Itching or Rash
Neurological: Denies Dizzy, Headache, Weakness or Numbness
Endocrine: Denies Polyuria, Polydipsia or Temp Intolerance
Hematologic/Lymphatic: Denies Bleeding, Swollen Glands or Bruising
Psych: Reports Calm; Denies Depression, Anxiety or Panic Disorder
Physical Exam
Vital Signs
Vital Signs
Temp Pulse Resp BP Pulse Ox
98.2 F 74 18 100/82 98
07/08/25 16:21 07/08/25 18:06 07/08/25 18:06 07/08/25 16:21 07/08/25 18:30
Physical Exam
General: Well Developed, Well Nourished, No Apparent Distress, Comfortable and Good Appetite; No Pain, Chills or Sweats
HEENT: NormoCephalic, Moist mucous membranes, Atraumatic, Good Dentition, PERRLA, Nose Appears Normal and Ears Appear Normal
Respiratory: Clear
Cardiac: S1/S2 and Regular Rhythm
Breast: Deferred by me
GI: Soft, Non Tender, Non Distended and Normal Bowel Sounds
Genito-urinary: Deferred by me
Musculoskeletal: No Clubbing, No Cyanosis and No Edema
Skin: Warm; No Rash, Jaundice, Ulcers, Lesions or Decubitus Ulcers
Neuro: Awake, Alert, Oriented, AO x 3, No Motor Deficits, Nonfocal/grossly intact and Cranial Nerves Intact
Hematologic/Lymphatic: No Lymphadenopathy
Psych: Calm
Laboratory Results
-
07/08/25 16:35
07/08/25 16:35
Laboratory Results
Total Bilirubin 1.6 mg/dl (0.2-1.3) H 07/08/25 16:35
AST 38 U/L (17-59) 07/08/25 16:35
ALT 29 U/L (0-50) 07/08/25 16:35
Alkaline Phosphatase 77 U/L (38-126) 07/08/25 16:35
Lipase 93 U/L (23-300) 07/08/25 16:35
Data Reviewed
-
Diagnostic Radiology: Report Reviewed by me
CT Scan: Report Reviewed by me
Medical Tests (Nuc Med, Echo, EKG etc): Report Reviewed by me
Lab Data: Labs Reviewed by me
Old Records: Reviewed
Impression/Plan
-
Impression:
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
admitted in March with similar condition and treated for adrenal crisis and since then hydrocortisone increased to 10 mg 3 times daily, patient told me follow-up with endocrine after discharge.
Initial blood work in the ER shows evidence of hyponatremia/hyperkalemia, patient received IV fluid patient seen and examined at bedside, denies any chest pain but admit heart pain and epigastric pain, shortness of breath.
Discussed with endocrine.
Patient will be admitted to IMU
Assessment/plan:
Acute adrenal crisis possible secondary to gastroenteritis
Admitted to IMU
Patient received IV fluid in the ER, received hydrocortisone 100 mg IV
Will start stress dose hydrocortisone 50 mg every 6 hours
Continue IV fluid
Discussed with endocrine Dr. Amado, advised to continue stress dose and switch to oral regimen once symptoms improve
Continue fludrocortisone 0.2mg po daily
Hyperthyroidism
Continue methimazole
Check TSH
Heartburn/GERD
Protonix/Maalox as needed
Mild gastroenteritis.
Symptomatic treatment as above with IV fluid and Zofran.
CODE STATUS: Full code
DVT prophylaxis: Lovenox
Diet: Regular diet
Disposition: Admit to IMU.
Total time spent on today's encounter was 75 minutes which included time spent in counseling the patient/family regarding diagnosis and treatment plan as listed above, goals of care, and symptom management. Case was discussed with nursing staff,
specialists, and care coordinators/case management. All labs and imaging personally reviewed by me. Remainder the time spent in detailed review of previous records, lab data, imaging, and other medical provider documentation.
[2025-07-08 21:00] VITALS: BP 98/57
[2025-07-08 21:39] VITALS: BP 101/72
[2025-07-08 21:42] VITALS: BMI 13.5
[2025-07-08 22:00] VITALS: BP 90/56
--- NOTE | 2025-07-08 22:00 | PTCARENOTE ---
Pt admitted to 3351 from ED. AAOx3, c/o some discomfort in abdomen. Denies nausea currently. Ambulated with standby assist to BR, had one episode diarrhea. SR/SB on tele. BPs 90s/50s. IVF infusing @ 80/hr. Mom at bedside. Plan of care discussed.
Call canchola within reach.
[2025-07-08 23:31] LABS: Urine Character Clear (Clear)
[2025-07-09] VITALS (8 sets, daily range): BP systolic 90–103; BP diastolic 47–70; BMI 14.4
[2025-07-09] MEDS: SOLU-CORTEF 50 MG IV ×3 (00:02→12:33)
[2025-07-09 00:13] LABS: Urine Red Blood Cell 0-2 /HPF (0-2); Urine Squamous Cell 0-2 /LPF (Few); Urine White Cell 0-2 /HPF (0-5)
[2025-07-09 04:47] LABS: Hematocrit 38.5 % (39.0-52.0); Hemoglobin 13.0 g/dL (13.0-18.0); Mean Corp Hgb Conc. 33.8 g/dL (33.0-37.0); Mean Corpuscular Volume 84.8 fL (80.0-94.0); Platelet Count 209 10^3/uL (130-400); Red Cell Dist. Width 11.9 % (11.5-14.5)
[2025-07-09 05:06] LABS: Blood Urea Nitrogen 31 mg/dl (9-20); Calcium 9.1 mg/dl (8.4-10.2); Carbon Dioxide 16 mmol/L (22-30); Chloride 103 mmol/L (98-107); Estimated Creatinine Clearance 78 ml/min; Glucose 79 mg/dl (70-99); Potassium 5.1 mmol/L (3.5-5.1); Sodium 127 mmol/L (135-145); eGFR > 60.00
[2025-07-09 05:38] LABS: TSH 2.00 uIU/ml (0.47-4.68)
--- NOTE | 2025-07-09 07:00 | PTCARENOTE ---
Cannot verify VS captured from prior shift.
[2025-07-09] MEDS: TAPAZOLE 5 MG PO (08:14)
[2025-07-09] MEDS: PROTONIX 40 MG PO (08:14)
[2025-07-09] MEDS: FLORINEF 0.2 MG PO (08:14)
[2025-07-09] MEDS: NSS 1000 IV (09:02)
--- NOTE | 2025-07-09 14:24 | W.PN.HOSP.TC ---
Addendum entered and electronically signed by Anjelica Pennington MD 07/09/25 16:08:
I saw and evaluated the patient independently. I reviewed and discussed the resident�s note and agree with findings and plan as documented by Dr. Pop.
GENERAL: frail cachectic male in no apparent distress
HEENT: NC/AT--no O2 requirements
HEART: regular rate and rhythm, +S1, +S2
LUNGS : clear to auscultation bilaterally
ABDOM: soft, nontender, nondistended, + bowel sounds
EXT: no cyanosis, clubbing, or edema
NEUROLOGIC: grossly intact
Acute adrenal crisis unclear if triggered by nausea and vomiting OR vice versa--received hydrocortisone 100 mg bolus dose, currently on stress dose hydrocortisone 50 mg every 6 hours, convert to home dosing at discharge-Continue fludrocortisone
0.2mg po daily and prednisone 1mg daily--Consulted incident response analyst Dr. Amado
hyponatremia/hyperkalemia/NON GAP metabolic acidosis -- all due to adrenal insufficiency
Hyperthyroidism--Continue methimazole--TSH is 2.00 and normal range
Mild gastroenteritis?- resolved, no more episodes of diarrhea, nausea, vomiting- Symptomatic treatment as above with IV fluid and Zofran.
Anxiety/ depression- Dc'd his prozac as he states he is no longer taking it after a discussion with his PCP. Stopped taking in October
Severe protein calorie malnutrition of chronic disease--Nutrition consult placed- Due to severe muscle and fat loss at his orbital area in his clavicle area-- His total calorie intake is 1818 gareth/day with 90 g of protein per day recommended
Heartburn/GERD- Patient placed on Protonix
DVT proph--Lovenox
CODE STATUS--Full code
Original Note:
Today's Communication/Plan
-
discharge patient home with home dose fludrocortisone, and have him check CBC and CMP on saturday
Assessment / Plan
Assessment / Plan
1. Acute adrenal crisis due to unknown cause:
- patient is stable and afebrile.
-Admitted to IMU
-received hydrocortisone 100 mg bolus dose , currently on stress dose hydrocortisone 50 mg every 6 hours.
-Will discontinue Protonix at discharge as he is no longer on high stress dose steroids
-Continue normal saline to raise blood pressure as low bp caused by decreased cortisol
-Continue fludrocortisone 0.2mg po daily
-Consulted incident response analyst Dr. Amado
- currently on stress dose hydrocortisone 50 mg every 6 hours. This is to replace cortisol the body cant produce during times of stress to maintain an adequate blood sugar and blood glucose. will resume home dose of hydrocortisone 10 mg tid and
fludrocortisone 0.2 mg/day with 1 mg steroid every night.
- Please follow up with Dr. Copeland on Saturday to get labs. CBC and CMP. To check your electrolyte levels.
2. Hyperthyroidism:
Continue methimazole
TSh is 2.00 and normal range
3. Mild gastroenteritis:
- resolved, no more episodes of diarrhea, nausea, vomiting
- Symptomatic treatment as above with IV fluid and Zofran.
4. Anxiety/ depression:
- Dc'd his prozac as he states he is no longer taking it after a discussion with his PCP. Stopped taking in October
5. Severe protein calorie malnutrition of chronic disease:
-Nutrition consult placed
- Due to severe muscle and fat loss at his orbital area in his clavicle area
- His total calorie intake is 1818 gareth/day with 90 g of protein per day recommended
6.heartburn/GERD:
- Patient placed on Protonix
DVT prophylaxis: Lovenox
CODE STATUS: Full code
Anticipated Discharge: Today
Subjective/Interval History
-
Date of Service: July 09, 2025
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
diarrhea, patient admitted in March with similar condition and treated for adrenal crisis and since then hydrocortisone increased to 10 mg 3 times [address] sees [address] Amado and incident response analyst.
Initial blood work in the ER shows evidence of hyponatremia/hyperkalemia, patient received IV fluid patient and fludrocortisone and hydrocortisone. He states that he has had adrenal crisis 8 times in the past year. He was diagnosed when he was 7
years old. States he has never missed a dose of medication. Denies any preceding illness, trauma, stress, surgery. Right now no fever, chills, nausea, vomiting, abdominal pain, muscle aches, shortness of breath, chest pain, visual changes,
headache, syncope, weakness, acute mental status changes.
Objective Data
-
Labs:
Laboratory Results
07/09/25
04:24
WBC 6.5
Hgb 13.0
Hct 38.5 L
Plt Count 209 D
Sodium 127 L
Potassium 5.1
Chloride 103
Carbon Dioxide 16 L
BUN 31 H
Creatinine 0.9
Glucose 79
Calcium 9.1
Vital Signs:
Vital Signs
Temp Pulse Resp BP Pulse Ox
99.0 F 75 17 93/66 99
07/09/25 12:18 07/09/25 13:30 07/09/25 13:30 07/09/25 12:00 07/09/25 13:30
I&O
07/08/25 07/09/25 07/10/25
06:59 06:59 06:59
Intake Total 240 / 240
Output Total 200 / 200 500 / 500
Balance 40 / 40 -500 / -500
Review of Systems
-
History Source: Patient
All other systems: Reviewed and negative
Physical Exam
-
General: Comfortable and Other (Patient appears very frail, his BMI is 13.5 kg)
HEENT: Normocephalic, Atraumatic and Moist Mucous Membranes
Respiratory: Clear to Auscultation
Cardiac: Regular Rhythm and S1/S2
Breast: Deferred by me
GI: Soft, Nontender, Nondistended and Normal Bowel Sounds
Rectal: Deferred by Provider
Genito-urinary: Deferred by me
Musculoskeletal: No Clubbing, No Cyanosis and No Edema
Skin: Warm
Neuro: Awake, Alert and Oriented
Psych: Calm
Data Reviewed
-
Labs: Labs Reviewed by me and Discussed with Physician
--- NOTE | 2025-07-09 15:06 | CM ---
Addendum entered by Lizbeth Valentine 07/09/25 15:09:
Plan for discharge home with family for supports.
Original Note:
Patient and mother seen at bedside in IMU. Patient states he lives with his father and step mother. Patient mother supportive and involved. Patient has never driven and there is no home DME. Patient PCP is Dr. Westfall and he uses the [facility] on [address] in [place]. Patient plan is home with family supports. CM will continue to follow for discharge planning needs.
Plan; home with no needs.
--- NOTE | 2025-07-09 15:49 | W.DCSUMMARY ---
Addendum entered and electronically signed by Anjelica Pennington MD 07/09/25 19:40:
Read, reviewed, and agree. See same day progress note for additional details. Time spent coordinating care, DC planning, review of DC plan of care with resident, transition of care, review of records in EMR, med rec, consults, notes, d/w
consultants, nursing, family, and CM = 31 minutes
Original Note:
Discharge Summary
Discharge Data
Date of Admission: 07/08/25
Date of Discharge: 07/09/25
-
Pending Results: No
Hospital Course
Discharging Physician : Dr. Anjelica Pennington and Dr. Ryan Pop
Disposition : Home
Primary care physician : Dr. Copeland
Principal Discharge diagnosis : Acute adrenal crisis, mild gastroenteritis, severe protein calorie malnutrition of chronic disease, GERD
Chronic Discharge diagnosis : Hypothyroidism, anxiety/depression
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
nausea, vomiting, diarrhea, patient admitted in March with similar condition and treated for adrenal crisis .
Problem #1: Acute adrenal crisis, Hyponatremia/hyperkalemia/nongap anion metabolic acidosis:
Patient presented on 07/08/2025 to the emergency department with 2 days of nausea, vomiting, diarrhea. His sodium was 127 and potassium was 5.3. His blood pressure on admission was 99/62. Heart rate on admission was 53 and EKG showed sinus
bradycardia. It is suspected that he had some mild form of gastroenteritis that could have precipitated his condition. Patient was then placed on 100 mg hydrocortisone IV bolus dose and then IV hydrocortisone 50 mg Q6 hourly as stress dose.
Continued his home dose of fludrocortisone 0.2 mg p.o. daily. He was also given normal saline fluids to help his low blood pressures. On 07/09/2025 he is stable, afebrile. His sodium on discharge is 127 and potassium is normalized. He does have
a nonanion gap metabolic acidosis on review of labs with sodium 127, carbon oxide 16, chloride 103. we placed a nutritional consult who diagnosed him with severe protein calorie nutrition of chronic disease. His heart rate on discharge is 75 bpm
and blood pressure is 93/66. On discharge he will transition to his home dose of 10 mg hydrocortisone p.o. 3 times daily along with fludrocortisone 0.2 mg p.o daily. His first dose of his review of systems is benign on discharge. Patient will
follow-up with Dr. Copeland on Saturday to obtain repeat labs CBC and CMP. He will also be contacted on Saturday by Dr. Amado his marine electronics repairer.
Problem #2: Hypothyroidism
- Continue methimazole. TSH checked during this admission is 2 and in normal range.
Problem #3: Mild gastroenteritis:
- Patient was admitted with 2 days of nausea, vomiting, diarrhea. On discharge he has no more episodes of diarrhea, nausea, vomiting. He is afebrile and stable. Symptomatic treatment with IV fluid and Zofran.
Problem #4: GERD:
- Patient presented with symptoms of gastroesophageal reflux disease and was placed on Protonix but upon discharge this was resolved. Protonix discontinued discharge
Important imaging findings :
EKG on 07/08/2025
Vent. Rate : 53 BPM Atrial Rate : 53 BPM
P-R Int : 144 ms QRS Dur : 114 ms
QT Int : 500 ms P-R-T Axes : 60 72 42 degrees
QTcB Int : 469 ms
SINUS BRADYCARDIA
RSR' OR QR PATTERN IN V1 SUGGESTS RIGHT VENTRICULAR CONDUCTION DELAY
T WAVE ABNORMALITY, CONSIDER INFERIOR ISCHEMIA
ABNORMAL ECG
WHEN COMPARED WITH ECG OF 06-Jun-2025 11:42,
NONSPECIFIC T WAVE ABNORMALITY NOW EVIDENT IN LATERAL LEADS
Confirmed by BETTY BOOGIE MD ([id number]) on 07/09/2025 7:17:29 AM
Procedure findings :
Discharge Plan
-
Patient Disposition: Home (Routine Discharge)
Discharge Diagnosis/Procedures: Acute adrenal crisis, hyperthyroidism, heartburn/GERD, mild gastroenteritis
Condition: Fair
Diet: Regular
Activity: No restrictions
Driving Restrictions: As prior to admission
Bathing Restrictions: None
Blood Work: CBC and CMP in on Saturday with PCP Dr. Copeland
Instructions: Adrenal crisis (DC)
Referrals:
Ranjit Copeland DO [Family Provider, Family Practice] - in two to three days
Collette Amado MD [Consulting Staff, Endocrinology] - in two to three days
Additional Discharge Medication Instructions: This patient is on total 30 mg of hydrocortisone (3x 10 mg tablets). Give 10 mg of oral Hydrocortisone at 6pm( this is to replace the IV stress dose he was receiving in the hospital). Then take the
second 10 mg dose eight hours after the first dose, and then another 10 mg dose dose 8 hours after. He can restart his home dose fludrocortisone either with his 1st dose of home hydrocortisone at 6 pm today or tomorrow in the AM with his second
dose.
Prescriptions:
Continued
prednisone 1 mg Tablet
1 mg PO HS
methimazole 5 mg Tablet
5 mg PO DAILY
fludrocortisone 0.1 mg Tablet
0.2 mg PO DAILY
hydrocortisone 10 mg Tablet
10 mg PO TID Qty: 90 0RF
ondansetron 4 mg tablet,disintegrating
4 mg PO Q6H PRN (Reason: nausea and vomiting) Qty: 14 0RF
Discontinued
fluoxetine 10 mg Tablet
10 mg PO DAILY
prednisone 1 mg tablet
1 mg PO DAILY Qty: 7 0RF
Discharge Orders:
Discharge Patient (As Directed); Ordered 07/09/25
Ordered By: Ryan Pop
Discharge Date and Time
Discharge Date/Time: 07/09/25 16:04
Print Language: LEBANESE
--- NOTE | 2025-07-09 16:09 | PTCARENOTE ---
Pt for d/c. IV and monitor equipment removed. D/c paperwork sent with pt. D/c off unit via wheelchair.
== END 2025-07-09 16:04 | disposition home or self-care (01) | DRG 643 ==
LOC: IMU 20:49
PROVIDERS: Student in an Organized Health Care Education/Training Program; ADMITTING PHYSICIAN General Practice; ATTENDING PHYSICIAN Internal Medicine; EMERGENCY PHYSICIAN Emergency Medicine; FAMILY PHYSICIAN Family Medicine
DX: E27.2 Addisonian crisis (principal); E43 Unspecified severe protein-calorie malnutrition; Z68.1 Body mass index [BMI] 19.9 or less, adult; E87.1 Hypo-osmolality and hyponatremia; E87.20 Acidosis, unspecified; K52.9 Noninfective gastroenteritis and colitis, unspecified; E03.9 Hypothyroidism, unspecified; F41.9 Anxiety disorder, unspecified; F32.A Depression, unspecified; K21.9 Gastro-esophageal reflux disease without esophagitis; E05.90 Thyrotoxicosis, unspecified without thyrotoxic crisis or storm; E31.8 Other polyglandular dysfunction; E87.5 Hyperkalemia
CPT/HCPCS: 80048; 80053; 81003; 81015; 83690; 84443; 85025; 85027; 86308; 93005; 96374; 96375; 99284